=== PATIENT | male | born 1965 | race Two or more races ===

== ENCOUNTER 2024-12-09 19:13 | Emergency (ER) | payer MEDICARE, OTHER ==
[~2024-12-09] VITALS: Ht 170.2 cm; Wt 82.0 kg
[2024-12-09 19:45] LABS: Hematocrit 27.1 % (41.0-53.0); Hemoglobin 9.1 g/dL (13.5-17.5); Mean Corpuscular Hemoglobin 32.8 pg (28.0-32.0); Mean Corpuscular Volume 97.2 fL (80.0-100.0); Nucleated Red Blood Cells % 0.0 %
[2024-12-09 19:56] LABS: Chloride 103 mmol/L (98-107); Potassium 5.1 mmol/L (3.5-5.1); Sodium 139 mmol/L (136-145)
[2024-12-09 19:57] LABS: Anion Gap 18 (5-15); Calcium 9.4 mg/dL (8.7-10.4); Carbon Dioxide 18 mmol/L (20-31)
--- NOTE | 2024-12-09 19:59 | ED.PDOC ---
History of Present Illness HPI Comments 59-year-old male who is brought in by ambulance from private residence for chief complaint of shortness of breath, generalized weakness, rhinorrhea, nausea, vomiting, and dysuria. Patient endorses on being short of breath and generalized weak for several years but reports on symptoms being exacerbated, today, fall recent onset of aforementioned flu-like symptoms. Patient also complains of 10/10 abdominal pain around the surgical site, where he had a hernia repair performed, recently. He denies having any chest pain, bloody or bilious vomitus, diarrhea, constipation, fever, chills, or further associated symptoms. Significant history of ESRD, COPD, and HTN. Patient states on missing dialysis all week, today. Per EMS report, patient was found hypotensive and wheezing in all bilateral lung evans and was given breathing treatment, with improvement, EN route. Otherwise, all other vitals were noted to have been stable and within normal limits. Chief Complaint: Shortness of Breath Time Seen by MD: 19:20 Reviewed Notes: Nurses Notes, Drop Hammer Setter Up Notes, Medications, Allergies Allergies: Coded Allergies: NO KNOWN ALLERGIES (Unverified , 12/09/24) Information Source: Patient, Emergency Med Personnel Mode of Arrival: EMS Severity: Moderate Timing: Hours Duration: Since onset Prehospital treatment: 12 Lead EKG, Breathing Tx, Set Up Operator Tool Review of Systems: REVIEW OF SYSTEMS: General: No fever, no chills, or fatigue HEENT: Rhinorrhea, no sore throat, no earache, no congestion, no neck pain. Cardiac: No chest pain. No palpitations. Lungs: Shortness of breath, no cough. GI: Nausea and vomiting, abdominal pain, no diarrhea, no constipation : Dysuria, frequency, or urgency. No hematuria. Musculoskeletal: No joint pain , no joint swelling, no extremity edema. Skin: No rash, no itching. Neuro: Generalized weakness, no headache, no dizziness Vital Signs Vital Signs Date Time Temp Pulse Resp B/P (MAP) Pulse Ox O2 Delivery O2 Flow Rate FiO2 12/09/24 21:33 24 95 Nasal Cannula* 2 28 12/09/24 21:07 81 150/114 (126) 12/09/24 20:01 97.9 97.9 Physical Exam PHYSICAL EXAM: General: Awake, alert and oriented. No acute distress. Skin: Skin in warm, dry and intact. Appropriate color for ethnicity. HEENT: The head is normocephalic and atraumatic. Conjunctivae are clear without exudates or hemorrhage. Sclera is non-icteric. EOM are intact. No signs of nystagmus. Eyelids are normal in appearance without swelling or lesions. Oral mucosa is pink and moist Neck: The neck is supple with normal range of motion. No JVD. Cardiac: Heart rate and rhythm are normal. No murmurs, gallops, or rubs are auscultated. Respiratory: No signs of respiratory distress. Wheezing in bilateral lung evans. Abdominal: Abdomen is soft, non-tender without distention, guarding or rigidity. Bowel sounds are present and normoactive in all four quadrants. Extremities: Upper and lower extremities are atraumatic in appearance without deformity or edema. Neurological: The patient is awake, alert and oriented to person, place, and time with normal speech. Speech is clear. There is no facial asymmetry. Psychiatric: Appropriate mood and affect. Good judgement and insight. Past Medical History PAST MEDICAL HISTORY: COPD, ESRD, HTN Surgical History: Denies all surgeries Family History Family History: Unknown Social History Smoker: Non-Smoker Alcohol: Denies ETOH Use Drugs: Denies Drug Use Lives In: Home Was a procedure done? Was a procedure done?: No EKG EKG #1: Pulse Rate (adult): 91 [place]: Normal Cardiac Rhythm: NSR Block: None Hypertrophy: None ST: Normal Comments No STEMI EKG #2: Pulse Rate (adult): 87 [place]: Normal Cardiac Rhythm: NSR Block: None Hypertrophy: None ST: Normal Comments No STEMI Differential Dx Considerations may include: Differential diagnoses considered includebut arenot limited to acute Bronchitis, Asthma, COPD, Pneumothorax, PE, CHF, Pulmonary HTN, Anemia, CO Poisoning, Methemoglobinemia, Hyperventilation, Metabolic Acidosis, Pulmonary Edema, Pneumonia, ACS, Pericardial Tamponade, Anxiety, other X-Ray, Labs, Meds, VS Vital Signs Date Time Temp Pulse Resp B/P (MAP) Pulse Ox O2 Delivery O2 Flow Rate FiO2 12/09/24 21:33 24 95 Nasal Cannula* 2 28 12/09/24 21:07 81 24 150/114 (126) 92 12/09/24 20:55 90 185/84 12/09/24 20:43 87 26 213/122 (152) 92 12/09/24 20:38 87 12/09/24 20:28 87 12/09/24 20:24 Simple Mask* 6 50 12/09/24 20:07 24 96 Room Air* 0 21 21 12/09/24 20:01 97.9 91 18 206/115 (145) 98 97.9 12/09/24 19:59 91 12/09/24 19:13 91 Lab Test 12/09/24 21:24 12/09/24 20:38 12/09/24 19:37 Range/Units Blood Gas Specimen Type Arterial Blood Gas Sample Site Right radial Blood Gas Patient Temperature 37.0 Arterial Blood Date Drawn [id number] Arterial Blood pH 7.332 L 7.350-7.450 Arterial Blood Partial Pressure CO2 32.8 L 35.0-48.0 mmHg Arterial Blood Partial Pressure O2 70.8 L 83.0-108.0 mmHg Arterial Blood HCO3 17.0 L 21.0-28.0 mmol/L Arterial Blood Oxygen Saturation 92.3 L 94.0-98.0 % Arterial Blood Base Excess -8.0 L -2.0-3.0 mmol/L Arterial Blood Oxyhemoglobin 89.6 L 94.0-98.0 % Arterial Blood Carboxyhemoglobin 2.9 H 0.5-1.5 % Arterial Blood Methemoglobin 0.0 0.0-1.5 % Kj Test Yes Blood Gas Total Hemoglobin 9.50 L 13.5-17.5 g/dL Blood Gas Modality Room air Blood Gas Spontaneous Rate 24 FiO2 % 21.0 Troponin I High Sensitivity 29 30 </=54 ng/L White Blood Count 13.4 H 4.4-10.8 10^3/uL Red Blood Count 2.79 L 4.5-5.90 10^6/uL Hemoglobin 9.1 L 13.5-17.5 g/dL Hematocrit 27.1 L 41.0-53.0 % Mean Corpuscular Volume 97.2 80.0-100.0 fL Mean Corpuscular Hemoglobin 32.8 H 28.0-32.0 pg Mean Corpuscular Hemoglobin Concent 33.7 32.0-36.0 g/dL Red Cell Distribution Width 13.9 11.8-14.3 % Platelet Count 186 140-450 10^3/uL Mean Platelet Volume 7.9 6.9-10.8 fL Neutrophils (%) (Auto) 83.8 H 37.0-80.0 % Lymphocytes (%) (Auto) 7.9 L 10.0-50.0 % Monocytes (%) (Auto) 6.0 0.0-12.0 % Eosinophils (%) (Auto) 2.0 0.0-7.0 % Basophils (%) (Auto) 0.3 0.0-2.0 % Neutrophils # (Auto) 11.2 H 1.6-8.6 10 ^3/uL Lymphocytes # (Auto) 1.1 0.4-5.4 10 ^3/uL Monocytes # (Auto) 0.8 0-1.3 10 ^3/uL Eosinophils # (Auto) 0.3 0-0.8 10 ^3/uL Basophils # (Auto) 0 0-0.2 10 ^3/uL Nucleated Red Blood Cells 0.0 % Sodium Level 139 136-145 mmol/L Potassium Level 5.1 3.5-5.1 mmol/L Chloride Level 103 98-107 mmol/L Carbon Dioxide Level 18 L 20-31 mmol/L Anion Gap 18 H 5-15 Blood Urea Nitrogen 96 *H 9-23 mg/dL Creatinine 13.28 *H 0.700-1.30 mg/dL Glomerular Filtration Rate Calc 4 >90 mL/min BUN/Creatinine Ratio 7.2 L 10.0-20.0 Serum Glucose 104 74-106 mg/dL Calcium Level 9.4 8.7-10.4 mg/dL B-Type Natriuretic Peptide 1541.01 0-100 pg/mL Lipase 129 H 12-53 U/L Plasma/Serum Blood Alcohol 4.0 <10 mg/dL Current Medications Medications (Trade) Dose Ordered Sig/Alexei Route Start Time Stop Time Status Last Admin Albuterol (Ventolin Medneb) 2.5 mg ONCE ONCE NEB 12/09/24 19:30 12/09/24 19:31 DC 12/09/24 20:07 Ipratropium Castana (Atrovent Medneb) 0.5 mg ONCE ONCE NEB 12/09/24 19:30 12/09/24 19:31 DC 12/09/24 20:07 Methylprednisolone Sodium Succinate (Solu Medrol) 80 mg ONCE ONCE IV 12/09/24 19:30 12/09/24 19:31 DC 12/09/24 20:02 Ondansetron HCl (Zofran) 4 mg ONCE ONCE IV 12/09/24 19:30 12/09/24 19:31 DC 12/09/24 20:02 Labetalol HCl (Labetalol HCl) 20 mg ONCE ONCE IV 12/09/24 20:45 12/09/24 20:47 DC 12/09/24 20:55 Albuterol (Ventolin Medneb) 2.5 mg ONCE ONCE NEB 12/09/24 21:00 12/09/24 21:01 DC 12/09/24 21:33 [place] [address] Ph: [phone] DIAGNOSTIC IMAGING Diagnostic Imaging Report : [id number] Signed PATIENT: VIOLETA RUFFIN ACCT: [id number] UNIT: [id number] : 1965 LOC: ER ROOM / BED: / AGE / SEX: 59 / M ADM STATUS: REG ER SERVICE 26 ORDERING PHYSICIAN: JOSY BOWDEN MD PROCEDURE(s): CXR1 - CHEST XRAY 1 VIEW REASON: Shortness of breath ORDER NUMBER(s): [id number], ACCESSION NUMBER(s): [id number] CHEST RADIOGRAPH Indication: Shortness of breath Technique: Single frontal view of the chest was obtained Comparison: None FINDINGS: Lines and Tubes: None Lungs: No focal consolidation. Mild interstitial prominence Pleura: No effusion. No pneumothorax. Cardiomediastinal contours: Mild cardiomegaly mild atherosclerotic calcification and uncoiling of the aorta. Bones: No acute osseous abnormality. IMPRESSION: Mild cardiomegaly with mild pulmonary vascular congestion. ATED BY: CLAIRE REED DO DICTATED DATE/TIME: 12/09/242100 SIGNED BY: CLAIRE REED DO SIGNED DATE/TIME: 12/09/242100 CC: Time of 1ST Reevaluation: 19:50 Reevaluation 1ST: Unchanged Patient Education/Counseling: Treatment Family Education/Counseling: No Family Present SEPSIS Sepsis Screen Physician Orders Titrate Oxygen (12/09/24 19:27) Oxygen (12/09/24 ) Continous Pulse Oximetry (12/09/24 19:27) Saline Lock (12/09/24 19:27) Set Up Operator Tool (12/09/24 ) Notify Md If Abnormal Vs (12/09/24 19:27) Drug Screen (12/09/24 19:27) Urinalysis (12/09/24 19:27) Chest Xray 1 View (12/09/24 19:27) Electrocardigram (12/09/24 19:27) Troponin-I Hs (12/09/24 22:27) Electrocardigram (12/09/24 20:27) Electrocardigram (12/09/24 22:27) Covid19 Antigen Kendra (12/09/24 ) Rapid Influenza A&B (12/09/24 19:27) Abg W/ Co-Ox (12/09/24 21:23) Vital Signs Date Time Temp Pulse Resp B/P (MAP) Pulse Ox O2 Delivery O2 Flow Rate FiO2 12/09/24 21:33 24 95 Nasal Cannula* 2 28 12/09/24 21:07 81 24 150/114 (126) 92 12/09/24 20:55 90 185/84 12/09/24 20:43 87 26 213/122 (152) 92 12/09/24 20:38 87 12/09/24 20:28 87 12/09/24 20:24 Simple Mask* 6 50 12/09/24 20:07 24 96 Room Air* 0 21 21 12/09/24 20:01 97.9 91 18 206/115 (145) 98 97.9 12/09/24 19:59 91 12/09/24 19:13 91 Laboratory Tests Test 12/09/24 19:37 White Blood Count 13.4 10^3/uL (4.4-10.8) H Medications Medications Dose Ordered Sig/Alexei Route Start Time Stop Time Status Last Admin Dose Admin Albuterol 2.5 mg ONCE ONCE NEB 12/09/24 19:30 12/09/24 19:31 DC 12/09/24 20:07 Albuterol 2.5 mg ONCE ONCE NEB 12/09/24 21:00 12/09/24 21:01 DC 12/09/24 21:33 Ipratropium Castana 0.5 mg ONCE ONCE NEB 12/09/24 19:30 12/09/24 19:31 DC 12/09/24 20:07 Labetalol HCl 20 mg ONCE ONCE IV 12/09/24 20:45 12/09/24 20:47 DC 12/09/24 20:55 Methylprednisolone Sodium Succinate 80 mg ONCE ONCE IV 12/09/24 19:30 12/09/24 19:31 DC 12/09/24 20:02 Ondansetron HCl 4 mg ONCE ONCE IV 12/09/24 19:30 12/09/24 19:31 DC 12/09/24 20:02 Departure 1 Departure Time of Disposition: 22:16 Impression: Primary Impression: End stage renal failure on dialysis Additional Impressions: Hypoxia Hypertensive urgency Shortness of breath Eloped from emergency department Disposition: LEFT AWOL/ELOPED Condition: Serious Comments 59-year-old male presents to the emergency department with shortness of breath after missing 1 week of dialysis. Patient was seen and evaluated on arrival to the ED, plan of care discussed with the patient. Treatment was initiated in the emergency department however patient did not want to stay, he left the emergency department before I was able to have a discussion with him about risk of leaving without completing treatment. Extensive evaluation was performed in attempt to identify or rule out: (See differential diagnosis section) The following test were independently interpreted by me: EKG I reviewed and agreed with the following test results read by other providers: Chest x-ray I reviewed the following notes from the pt's past medical encounters: N/A Additional information was gathered from interviewing the following independent historians: EMS personnel Critical Care Note Critical Care Time?: No Stability Stability form required: No Heart Score Heart Score: Heart Score Response (Comments) Value History Moderate Suspicious 1 EKG Normal 0 Age 45-64 1 Risk Factors >3 or Hx ASHD 2 Troponin Normal limit 0 Total 4 I personally scribed for JOSY BOWDEN MD ([email or web address]) on 12/09/24 at 19:59. Electronically submitted by Obey Meza ([email or web address]). I personally scribed for JOSY BOWDEN MD ([email or web address]) on 12/09/24 at 20:38. Electronically submitted by Obey Meza ([email or web address]). I personally scribed for JOSY BOWDEN MD ([email or web address]) on 12/09/24 at 21:25. Electronically submitted by Obey Meza ([email or web address]). JOSY BOWDEN MD Dec 09, 2024 19:59
[2024-12-09 20:01] VITALS: TEMP 97.9
[2024-12-09 20:02] LABS: BUN/Creatinine Ratio 7.2 (10.0-20.0); Glucose 104 mg/dL (74-106)
[2024-12-09] MEDS: methylPREDNISolone SOD SUCC 125 MG/2 ML VL IV ONE (20:02)
[2024-12-09] MEDS: ONDANSETRON HCL 4 MG/2 ML VIAL IV ONE (20:02)
[2024-12-09 20:03] LABS: Lipase 129 U/L (12-53)
[2024-12-09] MEDS: ALBUTEROL SULF 2.5 MG/0.5ML(0.5%) NEB SOLN NEB ONE ×2 (20:07→21:33)
[2024-12-09] MEDS: IPRATROPIUM BROM 0.5 MG/2.5ML INH SOL NEB ONE (20:07)
[2024-12-09 20:13] LABS: Blood Urea Nitrogen 96 mg/dL (9-23)
[2024-12-09] MEDS: LABETALOL HCL 20 MG/4 ML VL IV ONE (20:55)
--- NOTE | 2024-12-09 21:03 | DVH ---
CHEST RADIOGRAPH Indication: Shortness of breath Technique: Single frontal view of the chest was obtained Comparison: None FINDINGS: Lines and Tubes: None Lungs: No focal consolidation. Mild interstitial prominence Pleura: No effusion. No pneumothorax. Cardiomediastinal contours: Mild cardiomegaly mild atherosclerotic calcification and uncoiling of the aorta. Bones: No acute osseous abnormality. IMPRESSION: Mild cardiomegaly with mild pulmonary vascular congestion.
[2024-12-09 21:07] VITALS: BP 150/114; PULSE 81
[2024-12-09 21:33] VITALS: RESP 24; O2SAT 95
[2024-12-09 21:33] LABS: Base Excess -8.0 mmol/L (-2.0-3.0)
--- NOTE | 2024-12-10 07:08 | ECG ---
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
--- NOTE | 2024-12-10 13:02 | ECG ---
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
== END 2024-12-09 22:02 | disposition left against medical advice (07) ==
LOC: EDBD 19:13 → ER 19:13
DX: I16.0 Hypertensive urgency (principal); N18.6 End stage renal disease; R09.02 Hypoxemia; R06.02 Shortness of breath; J44.9 Chronic obstructive pulmonary disease, unspecified; I12.0 Hypertensive chronic kidney disease with stage 5 chronic kidney disease or end stage renal disease; Z99.2 Dependence on renal dialysis; Z91.158 Patient's noncompliance with renal dialysis for other reason
CPT/HCPCS: 36415; 36600; 71045; 80048; 80320; 82805; 83690; 83880; 84484; 85025; 93005; 94640; 96374; 96375; 99285; J2405; J2919

== ENCOUNTER 2025-01-03 21:17 | Inpatient (IN) | payer MEDICARE, MEDICAID ==
[~2025-01-03] VITALS: Ht 170.2 cm; Wt 84.3 kg
--- NOTE | 2025-01-03 22:18 | ED.PDOC ---
History of Present Illness HPI Comments 59-year-old male who came to ER for syncope. Patient has history of hypertension, COPD, end-stage renal disease on dialysis every Tuesday and Tuesday. Patient admits that he is not fully compliant to his dialysis sessions. Patient was dry coughing violently yesterday and he had a syncopal attack. At home earlier, he was coughing profusely again, when he had 2 episodes of syncopal attacks, both of which were preceded with dry coughing. Patient denies any prior history of syncopal attacks. REVIEW OF SYSTEMS: General: No fever, no chills, or fatigue HEENT: No sore throat, no earache, no congestion, no neck pain. Cardiac: No chest pain. No palpitations. (+) syncope Lungs: No shortness of breath, (+) cough. GI: No nausea, no vomiting, no diarrhea, no constipation, no abdominal pain : No dysuria, frequency, or urgency. No hematuria. Musculoskeletal: No joint pain , no joint swelling, no extremity edema. Skin: No rash, no itching. Neuro: No headache, no dizziness, no weakness PHYSICAL EXAM: General: Awake, alert and oriented. No acute distress. Skin: Skin in warm, dry and intact. Appropriate color for ethnicity. HEENT: The head is normocephalic and atraumatic. Conjunctivae are clear without exudates or hemorrhage. Sclera is non-icteric. EOM are intact. No signs of nystagmus. Eyelids are normal in appearance without swelling or lesions. Oral mucosa is pink and moist Neck: The neck is supple with normal range of motion. No JVD. Cardiac: Heart rate and rhythm are normal. No murmurs, gallops, or rubs are auscultated. Respiratory: No signs of respiratory distress. Positive wheezes bilaterally Abdominal: Abdomen is soft, non-tender without distention, guarding or rigidity. Bowel sounds are present and normoactive in all four quadrants. Extremities: Bilateral lower extremity edema. Fistula in left upper extremity Neurological: The patient is awake, alert and oriented to person, place, and time with normal speech. Speech is clear. There is no facial asymmetry. Psychiatric: Appropriate mood and affect. Good judgement and insight. Chief Complaint: Syncope Time Seen by MD: 22:16 Reviewed Notes: Nurses Notes Allergies: Coded Allergies: NO KNOWN ALLERGIES (Unverified , 12/09/24) Information Source: Patient, Relative Mode of Arrival: Wheelchair Severity: Moderate Timing: Hours Duration: Intermittent, Minutes Past Medical History PAST MEDICAL HISTORY: COPD, ESRD, HTN Surgical History: Denies all surgeries Family History Family History: Reviewed,noncontributory to illness Social History Smoker: Cigarettes Alcohol: Denies ETOH Use Drugs: Denies Drug Use Lives In: Home Was a procedure done? Was a procedure done?: No Differential Dx Considerations may include: Anemia, electrolyte imbalance, end-stage renal disease, syncope, dehydration X-Ray, Labs, Meds, VS Vital Signs Date Time Temp Pulse Resp B/P (MAP) Pulse Ox O2 Delivery O2 Flow Rate FiO2 01/03/25 23:30 20 92 Room Air* 0 21 01/03/25 21:23 98.1 89 16 156/81 96 98.1 Lab Test 01/03/25 22:10 Range/Units White Blood Count 6.5 4.4-10.8 10^3/uL Red Blood Count 2.64 L 4.5-5.90 10^6/uL Hemoglobin 9.0 L 13.5-17.5 g/dL Hematocrit 25.7 L 41.0-53.0 % Mean Corpuscular Volume 97.4 80.0-100.0 fL Mean Corpuscular Hemoglobin 34.0 H 28.0-32.0 pg Mean Corpuscular Hemoglobin Concent 34.9 32.0-36.0 g/dL Red Cell Distribution Width 14.5 H 11.8-14.3 % Platelet Count 191 140-450 10^3/uL Mean Platelet Volume 7.5 6.9-10.8 fL Neutrophils (%) (Auto) 74.5 37.0-80.0 % Lymphocytes (%) (Auto) 11.2 10.0-50.0 % Monocytes (%) (Auto) 8.2 0.0-12.0 % Eosinophils (%) (Auto) 5.0 0.0-7.0 % Basophils (%) (Auto) 1.1 0.0-2.0 % Neutrophils # (Auto) 4.8 1.6-8.6 10 ^3/uL Lymphocytes # (Auto) 0.7 0.4-5.4 10 ^3/uL Monocytes # (Auto) 0.5 0-1.3 10 ^3/uL Eosinophils # (Auto) 0.3 0-0.8 10 ^3/uL Basophils # (Auto) 0.1 0-0.2 10 ^3/uL Nucleated Red Blood Cells 0.1 % Sodium Level 140 136-145 mmol/L Potassium Level 3.6 3.5-5.1 mmol/L Chloride Level 98 98-107 mmol/L Carbon Dioxide Level 33 H 20-31 mmol/L Anion Gap 9 5-15 Blood Urea Nitrogen 27 H 9-23 mg/dL Creatinine 6.76 H 0.700-1.30 mg/dL Glomerular Filtration Rate Calc 9 >90 mL/min BUN/Creatinine Ratio 4.0 L 10.0-20.0 Serum Glucose 119 H 74-106 mg/dL Calcium Level 9.2 8.7-10.4 mg/dL Troponin I High Sensitivity 22 </=54 ng/L B-Type Natriuretic Peptide 415.57 0-100 pg/mL Current Medications Medications (Trade) Dose Ordered Sig/Alexei Route Start Time Stop Time Status Last Admin Albuterol (Ventolin Medneb) 2.5 mg ONCE ONCE NEB 01/03/25 23:15 01/03/25 23:20 DC 01/03/25 23:30 Ipratropium Drury (Atrovent Medneb) 0.5 mg ONCE ONCE NEB 01/03/25 23:15 01/03/25 23:20 DC 01/03/25 23:28 Time of 1ST Reevaluation: 22:12 Reevaluation 1ST: Unchanged Patient Education/Counseling: Need For Follow Up Family Education/Counseling: Need For Follow Up SEPSIS Sepsis Screen Date sepsis recognized/suspect: Jan 03, 2025 Time Sepsis recognized/suspect: 2126 Recent Procedure: No On Antibiotic Therapy: No Respiratory Rate >20: No Heart Rate >90: No Temp<36 C (96.8 F) or >38.3 C: No SBP <90 or MAP <65 mmHG: No New Acute Mental Status Change: No Is the patient on CPAP, BIPAP,: No Physician Orders Electrocardigram (01/03/25 22:04) Multicultural Services Librarian (01/03/25 ) Orthostatic Vital Signs (01/03/25 ) Saline Lock (01/03/25 22:04) Fall Precautions Initiated (01/03/25 22:04) Chest Xray 1 View (01/03/25 23:09) Vital Signs Date Time Temp Pulse Resp B/P (MAP) Pulse Ox O2 Delivery O2 Flow Rate FiO2 01/03/25 23:30 20 92 Room Air* 0 21 01/03/25 21:23 98.1 89 16 156/81 96 98.1 Laboratory Tests Test 01/03/25 22:10 White Blood Count 6.5 10^3/uL (4.4-10.8) Medications Medications Dose Ordered Sig/Alexei Route Start Time Stop Time Status Last Admin Dose Admin Albuterol 2.5 mg ONCE ONCE NEB 01/03/25 23:15 01/03/25 23:20 DC 01/03/25 23:30 Ipratropium Drury 0.5 mg ONCE ONCE NEB 01/03/25 23:15 01/03/25 23:20 DC 01/03/25 23:28 Departure 1 Departure Time of Disposition: 23:10 Impression: Primary Impression: Syncopal episodes Disposition: ADMITTED INPATIENT Condition: Stable Comments MDM: 59-year-old male presents to the emergency department with multiple syncopal episode. Initial evaluation included thorough history, physical examination and appropriate diagnostic testing. Based on the clinical presentation and diagnostic findings, the patient appears to have repeated syncope, history of COPD and end-stage renal disease on dialysis. Given the complexity of the case, patient's multiple comorbidities and cardiac risk factors and need for further management patient is being admitted to the hospitalist service for further monitoring, treatment and evaluation. Risks, benefits and alternatives of admission and proposed interventions were discussed with the patient. Patient is in agreement with the plan. Extensive evaluation was performed in attempt to identify or rule out: (See differential diagnosis section) The following tests were ordered, and results were reviewed by me and discussed with patient: (See diagnostic results section) The following test were independently interpreted by me: EKG I reviewed and agreed with the following test results read by other providers: Chest x-ray I reviewed the following notes from the pt's past medical encounters: N/A Additional information was gathered from interviewing the following independent historians: Patient's family members at bedside Discussion of management or test interpretation with external physician/other qualified health career development coordinator/teacher: N/A Addressed [An acute or chronic illness that poses a threat to life or bodily function: Syncope Decision regarding hospitalization or escalation of hospital level of care: Risk and benefits of admission for further treatment of patient's condition was considered. Due to patient's current clinical condition, high risk of decline and poor outcome if discharged and need for further inpatient management and monitoring, patient will be admitted to the hospital. Drug therapy requiring intensive monitoring for toxicity: N/A Parenteral controlled substances: N/A Decision regarding elective major surgery with identified patient or procedure risk factors: N/A Decision regarding emergency major surgery: N/A Decision not to resuscitate or to de-escalate care because of poor prognosis: N/A Diagnosis or treatment significantly limited by social determinants of health: N/A Critical Care Note Critical Care Time?: No Stability Stability form required: No Heart Score Heart Score: Heart Score Response (Comments) Value History N/A 0 EKG N/A 0 Age N/A 0 Risk Factors N/A 0 Troponin N/A 0 Total 0 I personally scribed for JOSY BOWDEN MD ([email or web address]) on 01/03/25 at 22:18. Electronically submitted by Jin Oconnor ([email or web address]). JOSY BOWDEN MD Jan 03, 2025 22:18
[2025-01-03 22:27] LABS: Hematocrit 25.7 % (41.0-53.0); Hemoglobin 9.0 g/dL (13.5-17.5); Mean Corpuscular Hemoglobin 34.0 pg (28.0-32.0); Mean Corpuscular Volume 97.4 fL (80.0-100.0); Nucleated Red Blood Cells % 0.1 %
[2025-01-03 22:33] LABS: Potassium 3.6 mmol/L (3.5-5.1); Sodium 140 mmol/L (136-145)
[2025-01-03 22:34] LABS: Anion Gap 9 (5-15)
[2025-01-03 22:35] LABS: Calcium 9.2 mg/dL (8.7-10.4)
[2025-01-03 22:40] LABS: BUN/Creatinine Ratio 4.0 (10.0-20.0)
[2025-01-03 22:43] LABS: Blood Urea Nitrogen 27 mg/dL (9-23); Carbon Dioxide 33 mmol/L (20-31); Chloride 98 mmol/L (98-107); Glucose 119 mg/dL (74-106)
[2025-01-03] MEDS: IPRATROPIUM BROM 0.5 MG/2.5ML INH SOL NEB ONE (23:28)
[2025-01-03] MEDS: ALBUTEROL SULF 2.5 MG/0.5ML(0.5%) NEB SOLN NEB ONE (23:30)
[2025-01-04] VITALS (7 sets, daily range): BP systolic 150–169; BP diastolic 81–107; PULSE 79–92; RESP 16–20; TEMP 98.1–98.4; O2SAT 92–97
--- NOTE | 2025-01-04 00:28 | DVH ---
CHEST RADIOGRAPH Indication: Cough, syncope Technique: 1 view Comparison: XY CHEST XRAY 1 VIEW on DOS: 12/09/24 FINDINGS: Lines and Tubes: None Lungs: Diffuse interstitial prominence. Mild patchy left basilar opacity. Pleura: No effusion or pneumothorax. Cardiomediastinal contours: Mild cardiomegaly. Aortic atherosclerosis. Other: No acute osseous abnormality. IMPRESSION: 1. Small focal consolidation at the left lung base may represent early or mild pneumonia. Underlying findings of heart failure.
[2025-01-04] MEDS ORDERED: NITROGLYCERIN 0.4 MG SL TAB SL PRN (03:15)
[2025-01-04] MEDS ORDERED: MORPHINE SULFATE INJ 2 MG/ml SYRG IV PRN (03:15)
[2025-01-04] MEDS ORDERED: DOCUSATE SOD 100 MG CAP PO PRN (03:15)
[2025-01-04] MEDS ORDERED: ACETAMINOPHEN 325 MG TAB PO PRN (03:15)
--- NOTE | 2025-01-04 03:15 | DVHHP2 ---
History of Present Illness Reason for Visit: Syncopal episodes History of Present Illness The patient is a 59-year-old male with past medical history of COPD, end-stage renal disease on hemodialysis , and hypertension who presented to [facility] ED for evaluation of syncopal episode.Patient admits that he is not fully compliant to his dialysis sessions, noted to be coughing profusely, had 2 episodes of syncopal attacks, both of which were preceded with dry coughing. Patient was seen and evaluated in the ED, laboratory data shows WBC 6.5, hemoglobin 9.0, hematocrit 25.7, platelets 191, sodium 140, potassium 3.6, BUN 27, creatinine 6.76, glucose 119, calcium 9.2, troponin 22, BNP 415.57, blood pressure 156/81, heart rate 89, temperature 98.1 F, O2 saturation 96% on room air. Chest x-ray revealing small focal consolidations at the left lungs base may represent Joyce mild pneumonia. Please see medication orders section in the computer. On my assessment, patient denied chest pain, no headache, no dizziness, no diaphoresis, no shortness of breaths, no nausea, no vomiting, no fever, no chills. Patient was admitted for further evaluation and medical management. Past Medical History COPD, ESRD, HTN Past Surgical History Denies all surgeries Family History Reviewed, noncontributory to the management of this case. Past Social History The patient lives at home, smokes cigarettes, denies alcohol or illicit drugs abuse. Review of Systems Constitutional: Yes: Weakness; No: Fever, Chills, Sweats, Malaise, Other Eyes: No: Pain, Vision change, Conjunctivae inflammation, Eyelid inflammation, Other, Redness ENT: No: Ear pain, Ear discharge, Nose pain, Nose discharge, Nose congestion, Mouth pain, Mouth swelling, Throat pain, Throat swelling, Other Respiratory: No: Cough, Dry, Shortness of breath, SOB with excertion, Wheezing, Hemoptysis, Pleuritic Pain, Sputum, Wheezing, Other Cardiovascular: Other (Syncope); No: Chest Pain, Palpitations, Orthopnea, Paroxysmal Noc. Dyspnea, Edema, Lt Headedness Gastrointestinal: No: Nausea, Vomiting, Abdominal Pain, Diarrhea, Constipation, Melena, Hematochezia, Other Genitourinary: No Dysuria, No Frequency, No Incontinence, No Hematuria, No R etention; Other (On hemodialysis, av fistula left upper extremity.) Musculoskeletal: No: other, neck pain, shoulder pain, arm pain, back pain, hand pain, leg pain, foot pain Skin: No: Rash, Lesions, Jaundice, Bruising, Other Neurological: No: Weakness, Numbness, Incoordination, Change in speech, Confusion, Seizures, Other Allergies: Coded Allergies: NO KNOWN ALLERGIES (Unverified , 12/09/24) Exam Vital Signs Vital Signs Date Time Temp Pulse Resp B/P (MAP) Pulse Ox O2 Delivery O2 Flow Rate FiO2 01/03/25 23:30 20 92 Room Air* 0 21 01/03/25 21:23 98.1 89 156/81 98.1 General Appearance: Alert, Oriented X3, Cooperative, No acute distress HEENT: Atraumatic, PERRLA, EOMI, Mucous membr. moist/pink Respiratory: Normal air movement Cardiovascular: Regular rate, Normal S1, Normal S2, No murmurs Abdominal: Normal bowel sounds, Soft, No tenderness, No hepatospenomegaly, No masses Extremities: No clubbing, No cyanosis, No edema, Normal pulses, No tende rness/swelling Skin: No rashes, No breakdown, No significant lesion Neuro: Normal speech, Normal tone, Sensation intact, Cranial nerves 3-12 NL, Reflexes 2+ Psych/Mental Status: Mental status NL, Mood NL Labs/Xrays Labs Test 01/03/25 22:10 Range/Units White Blood Count 6.5 4.4-10.8 10^3/uL Red Blood Count 2.64 L 4.5-5.90 10^6/uL Hemoglobin 9.0 L 13.5-17.5 g/dL Hematocrit 25.7 L 41.0-53.0 % Mean Corpuscular Volume 97.4 80.0-100.0 fL Mean Corpuscular Hemoglobin 34.0 H 28.0-32.0 pg Mean Corpuscular Hemoglobin Concent 34.9 32.0-36.0 g/dL Red Cell Distribution Width 14.5 H 11.8-14.3 % Platelet Count 191 140-450 10^3/uL Mean Platelet Volume 7.5 6.9-10.8 fL Neutrophils (%) (Auto) 74.5 37.0-80.0 % Lymphocytes (%) (Auto) 11.2 10.0-50.0 % Monocytes (%) (Auto) 8.2 0.0-12.0 % Eosinophils (%) (Auto) 5.0 0.0-7.0 % Basophils (%) (Auto) 1.1 0.0-2.0 % Neutrophils # (Auto) 4.8 1.6-8.6 10 ^3/uL Lymphocytes # (Auto) 0.7 0.4-5.4 10 ^3/uL Monocytes # (Auto) 0.5 0-1.3 10 ^3/uL Eosinophils # (Auto) 0.3 0-0.8 10 ^3/uL Basophils # (Auto) 0.1 0-0.2 10 ^3/uL Nucleated Red Blood Cells 0.1 % Sodium Level 140 136-145 mmol/L Potassium Level 3.6 3.5-5.1 mmol/L Chloride Level 98 98-107 mmol/L Carbon Dioxide Level 33 H 20-31 mmol/L Anion Gap 9 5-15 Blood Urea Nitrogen 27 H 9-23 mg/dL Creatinine 6.76 H 0.700-1.30 mg/dL Glomerular Filtration Rate Calc 9 >90 mL/min BUN/Creatinine Ratio 4.0 L 10.0-20.0 Serum Glucose 119 H 74-106 mg/dL Calcium Level 9.2 8.7-10.4 mg/dL Troponin I High Sensitivity 22 </=54 ng/L B-Type Natriuretic Peptide 415.57 0-100 pg/mL PATIENT: VIOLETA RUFFIN ACCT: [id number] UNIT: [id number] : 1965 LOC: ER ROOM / BED: / AGE / SEX: 59 / M ADM STATUS: REG ER SERVICE [id number] ORDERING PHYSICIAN: JOSY BOWDEN MD PROCEDURE(s): CXR1 - CHEST XRAY 1 VIEW REASON: Cough, syncope ORDER NUMBER(s): [id number], ACCESSION NUMBER(s): [id number] CHEST RADIOGRAPH Indication: Cough, syncope Technique: 1 view Comparison: XY CHEST XRAY 1 VIEW on DOS: 12/09/24 FINDINGS: Lines and Tubes: None Lungs: Diffuse interstitial prominence. Mild patchy left basilar opacity. Pleura: No effusion or pneumothorax. Cardiomediastinal contours: Mild cardiomegaly. Aortic atherosclerosis. Other: No acute osseous abnormality. IMPRESSION: 1. Small focal consolidation at the left lung base may represent early or mild pneumonia. Underlying findings of heart failure. SEPSIS Sepsis Screen Date sepsis recognized/suspect: Jan 03, 2025 Time Sepsis recognized/suspect: 2126 Recent Procedure: No On Antibiotic Therapy: No Respiratory Rate >20: No Heart Rate >90: No Temp<36 C (96.8 F) or >38.3 C: No SBP <90 or MAP <65 mmHG: No New Acute Mental Status Change: No Is the patient on CPAP, BIPAP,: No Physician Orders Electrocardigram (01/03/25 22:04) Fire Management Specialist (01/03/25 ) Orthostatic Vital Signs (01/03/25 ) Saline Lock (01/03/25 22:04) Fall Precautions Initiated (01/03/25 22:04) Chest Xray 1 View (01/03/25 23:09) Complete Blood Count (01/04/25 04:00) Comprehensive Metabolic Panel (01/04/25 04:00) *Dr. Alondra Monroe -Da Gemma (01/04/25 03:05) Albuterol Medneb (Ventolin Medneb) (01/04/25 03:15) Sevelamer (Renagel) (01/04/25 08:00) B-Complex W/ C & Folic Tablet (Nephro-Vi (01/04/25 10:00) Azithromycin 500mg/ 250ml (Zithromax 50 (01/04/25 10:00) Azithromycin 500mg/ 250ml (Zithromax 50 (01/04/25 03:15) Type And Screen (01/04/25 03:05) Admit (01/04/25 03:05) Allergies (01/04/25 03:05) Code Status (01/04/25 03:05) Renal Standard(2gna,3gk,Lopho) (01/04/25 Breakfast) Sodium Chloride Lock (Saline Lock Ns) (01/04/25 06:00) Oxygen Per Hour (01/04/25 03:05) Hydrocodone-Acet 5/325mg Tab (Kelly 5/32 (01/04/25 03:15) Ondansetron Hcl (Zofran) (01/04/25 03:15) Docusate Sodium Capsule (Colace Capsule) (01/04/25 03:15) Complete Blood Count (01/05/25 04:00) Comprehensive Metabolic Panel (01/05/25 04:00) Condition: Serious (01/04/25 03:05) Acetaminophen Tablet (Tylenol Tablet) (01/04/25 03:15) Bedrest With Bathroom Privileg (01/04/25 03:05) Sequential Compression Device (01/04/25 ) Nitroglycerin Sublingual (Ntrostat Subli (01/04/25 03:15) Morphine Sulfate Injection (01/04/25 03:15) Stat Ekg For Chest Pain (01/04/25 03:05) Notify Of Changes From Base (01/04/25 03:05) Pile Driving Technician For 24 Hours (01/04/25 03:05) Emergency Dysrhythmia Protocol (01/04/25 03:05) Rhythm Strips Once Every Shift (01/04/25 03:05) Oxygen By Nasal Cannula (01/04/25 03:05) Vital Signs Date Time Temp Pulse Resp B/P (MAP) Pulse Ox O2 Delivery O2 Flow Rate FiO2 01/03/25 23:30 20 92 Room Air* 0 21 01/03/25 21:23 98.1 89 16 156/81 96 98.1 Laboratory Tests Test 01/03/25 22:10 White Blood Count 6.5 10^3/uL (4.4-10.8) Medications Medications Dose Ordered Sig/Alexei Route Start Time Stop Time Status Last Admin Dose Admin Albuterol 2.5 mg ONCE ONCE NEB 01/03/25 23:15 01/03/25 23:20 DC 01/03/25 23:30 2.5 MG Ipratropium [place] 0.5 mg ONCE ONCE NEB 01/03/25 23:15 01/03/25 23:20 DC 01/03/25 23:28 0.5 MG Assessment/Plan Assessment/Plan Syncopal episodes Pneumonia, unspecified organism End-stage renal disease on hemodialysis Plan 1. Admit to telemetry unit 2. Breathing treatment 3. Pain control management 4. IV antibiotic management 5. Management of fluids and electrolytes 6. Consultation for wound care etc 7. Diagnostic test chest x-ray 8. DVT prophylaxis on aspirin 9. Repeat labs CBC, CMP in a.m. 10. Home medication reviewed and reconciled 11. Continue with current medical management 12. Treatment plan discussed with patient and RN. Patient verbalized understanding. Plan discussed with: Patient, Other (RN) My Orders Orders - TRISH CONTI DNP Procedure Category Date Status Time Complete Blood Count LAB 01/04/25 Transmitted 04:00 Comprehensive LAB 01/04/25 Transmitted Metabolic Panel 04:00 *Dr. Alondra Monroe -Da CONS 01/04/25 Transmitted Gemma 03:05 Albuterol Medneb PHA 01/04/25 Transmitted (Ventolin Medneb) 03:15 Sevelamer (Renagel) PHA 01/04/25 Transmitted 08:00 B-Complex W/ C & PHA 01/04/25 Transmitted Folic Tablet 10:00 Azithromycin 500mg/ PHA 01/04/25 Transmitted 250ml (Zithromax 50 10:00 Azithromycin 500mg/ PHA 01/04/25 Transmitted 250ml (Zithromax 50 03:15 Type And Screen BBK 01/04/25 Transmitted 03:05 Admit ADMIT 01/04/25 Transmitted 03:05 Allergies HELENA 01/04/25 Transmitted 03:05 Code Status CODE 01/04/25 Transmitted 03:05 Renal DIET 01/04/25 Transmitted Standard(2gna,3gk,Lopho) Breakfast Sodium Chloride Lock PHA 01/04/25 Transmitted (Saline Lock Ns) 06:00 Oxygen Per Hour RT 01/04/25 Transmitted 03:05 Hydrocodone-Acet PHA 01/04/25 Transmitted 5/325mg Tab (Kelly 03:15 Ondansetron Hcl PHA 01/04/25 Transmitted (Zofran) 03:15 Docusate Sodium PHA 01/04/25 Transmitted Capsule (Colace 03:15 Complete Blood Count LAB 01/05/25 Verified 04:00 Comprehensive LAB 01/05/25 Verified Metabolic Panel 04:00 Condition: Serious HELENA 01/04/25 Transmitted 03:05 Acetaminophen Tablet PHA 01/04/25 Transmitted (Tylenol Tablet) 03:15 Bedrest With Bathroom HELENA 01/04/25 Transmitted Privileg 03:05 Sequential HELENA 01/04/25 Transmitted Compression Device Nitroglycerin PHA 01/04/25 Transmitted Sublingual (Ntrostat 03:15 Morphine Sulfate PHA 01/04/25 Transmitted Injection 03:15 Stat Ekg For Chest HELENA 01/04/25 Transmitted Pain 03:05 Notify Md Of Changes [facility] 01/04/25 Transmitted From Base 03:05 Pile Driving Technician For [facility] 01/04/25 Transmitted 24 Hours 03:05 Emergency Dysrhythmia [facility] 01/04/25 Transmitted Protocol 03:05 Rhythm Strips Once [facility] 01/04/25 Transmitted Every Shift 03:05 Oxygen By Nasal 01/04/25 Transmitted Cannula 03:05 Problem List: (1) Syncopal episodes (2) Pneumonia, unspecified organism (3) End stage renal failure on dialysis Date of Service: Jan 04, 2025 Billing Provider: TRISH CONTI DNP Common Visit Codes: [id number] INP/OBS CARE (HIGH) TRISH CONTI DNP Jan 04, 2025 03:15
[2025-01-04 03:53] LABS: Hematocrit 26.3 % (41.0-53.0); Hemoglobin 9.1 g/dL (13.5-17.5); Mean Corpuscular Hemoglobin 33.7 pg (28.0-32.0); Mean Corpuscular Volume 97.2 fL (80.0-100.0); Nucleated Red Blood Cells % 0.0 %
[2025-01-04] MEDS: AZITHROMYCIN 500MG/ 250ML 250 ML IV ONE (04:09)
[2025-01-04] MEDS: SODIUM CHLOR 0.9% PF (SALINE LOCK) 10ML VIAL/SYR IV SCH (04:09)
[2025-01-04 04:16] LABS: Albumin 4.1 g/dL (3.2-4.8); Alkaline Phosphatase 75 U/L (46-116); Anion Gap 12 (5-15); BUN/Creatinine Ratio 4.1 (10.0-20.0); Calcium 9.2 mg/dL (8.7-10.4); Carbon Dioxide 30 mmol/L (20-31); Glucose 92 mg/dL (74-106); Sodium 140 mmol/L (136-145); Total Protein 6.4 g/dL (5.7-8.2)
[2025-01-04 04:17] LABS: Alanine Aminotransferase < 9 U/L (7-40); Bilirubin, Total 0.3 mg/dL (0.2-1.0); Blood Urea Nitrogen 30 mg/dL (9-23); Chloride 98 mmol/L (98-107); Potassium 3.4 mmol/L (3.5-5.1)
[2025-01-04] MEDS: SEVELAMER 800 MG TAB PO SCH (09:57)
[2025-01-04] MEDS: B-COMPLEX W/ C & FOLIC ACID(NEPHROVITE TAB) PO SCH (10:54)
[2025-01-04] MEDS: CARVEDILOL 3.125 MG TAB PO SCH (10:56)
--- NOTE | 2025-01-04 12:48 | DVHPN2 ---
Reviewed: Care Plan, H&P, Labs, Medications, Previous Orders, Radiology Changes from previous H/P or p: No Changes Eyes: No Pain, No Vision change, No Conjunctivae inflammation, No Eyelid inflammation, No Other, No Redness ENT: No Ear pain, No Ear discharge, No Nose pain, No Nose discharge, No Nose congestion, No Mouth pain, No Mouth swelling, No Throat pain, No Throat swelling, No Other Cardiovascular: No Chest Pain, No Palpitations, No Orthopnea, No Paroxysmal Noc. Dyspnea, No Edema, No Lt Headedness; Other (Syncope) Respiratory: No Cough, No Dry, No Shortness of breath, No SOB with excertion, No Wheezing, No Hemoptysis, No Pleuritic Pain, No Sputum, No Other Gastrointestinal: No Nausea, No Vomiting, No Abdominal Pain, No Diarrhea, No Constipation, No Melena, No Hematochezia, No Other Genitourinary: No Dysuria, No Frequency, No Incontinence, No Hematuria, No Retention; Other (On hemodialysis, av fistula left upper extremity.) Musculoskeletal: No other, No neck pain, No shoulder pain, No arm pain, No back pain, No hand pain, No leg pain, No foot pain Skin: No Rash, No Lesions, No Jaundice, No Bruising, No Other Objective Vitals Vital Signs Date Time Temp Pulse Resp B/P (MAP) Pulse Ox O2 Delivery O2 Flow Rate FiO2 01/04/25 10:56 80 177/104 01/04/25 10:43 98.9 18 97 98.9 01/04/25 04:32 Room Air* 0 21 Medications Current Medications Medications Dose Ordered Sig/Alexei Route Start Time Stop Time Status Last Admin Dose Admin Albuterol 2.5 mg Q4HPRN PRN NEB 01/04/25 03:15 Sevelamer HCl 800 mg TIDWM PO 01/04/25 08:00 01/04/25 10:56 800 MG Multivit/Ca Carb/ B Cmplx/FA/Prenat 1 tab DAILY PO 01/04/25 10:00 01/04/25 10:54 1 TAB Azithromycin 250 ml @ 125 mls/hr DAILY IV 01/05/25 10:00 Sodium Chloride 10 ml Q8HR IV 01/04/25 06:00 01/04/25 04:09 10 ML Acetaminophen/ Hydrocodone Bitart 1 tab Q4HP PRN PO 01/04/25 03:15 Ondansetron HCl 4 mg Q4HP PRN IV 01/04/25 03:15 Docusate Sodium 100 mg BIDPRN PRN PO 01/04/25 03:15 Acetaminophen 650 mg Q6HP PRN PO 01/04/25 03:15 Nitroglycerin 0.4 mg Q5MINP PRN SL 01/04/25 03:15 Morphine Sulfate 2 mg Q30M PRN IV 01/04/25 03:15 Carvedilol 6.25 mg Q12HR PO 01/04/25 10:00 01/04/25 10:56 6.25 MG Hydralazine HCl 10 mg Q6HP PRN IV 01/04/25 06:30 Ceftriaxone Sodium 50 ml @ 100 mls/hr DAILY@ IV 01/05/25 09:00 UNV Laboratory Results Laboratory Tests 01/04/25 03:30 Chemistry Test 01/03/25 22:10 01/04/25 03:30 Calcium Level 9.2 mg/dL (8.7-10.4) 9.2 mg/dL (8.7-10.4) Albumin 4.1 g/dL (3.2-4.8) Total Protein 6.4 g/dL (5.7-8.2) Cardiac Markers Test 01/03/25 22:10 B-Type Natriuretic Peptide 415.57 pg/mL (0-100) LFT Test 01/04/25 03:30 Alanine Aminotransferase (ALT) < 9 U/L (7-40) Alkaline Phosphatase 75 U/L (46-116) Aspartate Amino Transferase (AST) 11 U/L (13-40) L Total Bilirubin 0.3 mg/dL (0.2-1.0) Labs and/or images reviewed: Labs reviewed by me, Image(s) reviewed by me Assessment/Plan Assessment/Plan Syncope: CT head ordered Sepsis secondary to left lower lobe pneumonia Left lower lobe pneumonia: Rocephin azithromycin ESRD on hemodialysis: Consult for Dr. Cantu COPD exacerbation Hypertension Medication noncompliance Time spent 75 minutes Advanced care planning time 20 minutes Patient is full code Plan discussed with: Patient My Orders Orders - GAB WIGGINS MD Procedure Category Date Status Time Ceftriaxone 1gm/50ml PHA 01/05/25 Logged D5w (Rocephin) 09:00 Ceftriaxone 1gm/50ml PHA 01/04/25 Logged D5w (Rocephin) 12:45 Rapid Influenza A&B LAB 01/04/25 Verified 12:44 Covid19 Antigen Kendra LAB 01/04/25 Verified D-Dimer LAB 01/04/25 Verified 12:44 Date of Service: Jan 04, 2025 Billing Provider: GAB WIGGINS MD Common Visit Codes: [id number] CARE 30-74 MIN GAB WIGGINS MD Jan 04, 2025 12:48
--- NOTE | 2025-01-04 13:49 | DVH ---
EXAM: CT HEAD WITHOUT CONTRAST HISTORY: Syncope COMPARISON: For reasons unknown, CT scan of the head dated 12/15/2004 was not made available on the [employer] system for viewing. TECHNIQUE: Noncontrast axial CT images of the head were performed. Sagittal and coronal reformatted i mages were obtained. This CT exam was performed using 1 or more of the following dose reduction techn iques: Automated exposure control, adjustment of the mA and/or kv according to patient size, or the u se of iterative reconstruction techniques. Radiation Dose: CTDI volume is 57.33 mGy. Dose-length product is 1013.38 mGy*cm FINDINGS: There is moderate decreased attenuation in the periventricular and by cerebral white matter. There ar e old lacunar infarcts of the bilateral basal ganglia and left caudate head. No intracranial hemorrha ge, mass, midline shift, hydrocephalus, or evidence of acute large vessel infarct. There are atherosc lerotic calcifications of the cavernous ICAs, terminal vertebral arteries, and basilar artery. There is a mucous retention cyst in the right maxillary sinus. The bilateral mastoid air cells and middle e ar spaces are clear. No cranial fracture or scalp edema. IMPRESSION: 1. Chronic ischemic changes without evidence of acute intracranial process. 2. Right maxillary sinus disease.
[2025-01-04] MEDS: cefTRIAXone 1GM/50ML D5W 50 ML IV ONE (14:40)
[2025-01-04] MEDS: hydrALAZINE HCL 20 MG/ML VL IV PRN (14:44)
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
[2025-01-04 19:08] LABS: COVID19 ANTIGEN SOFIA FIA NEGATIVE (NEGATIVE)
[2025-01-05] VITALS (8 sets, daily range): BP systolic 151–168; BP diastolic 80–92; PULSE 80–90; RESP 18–22; TEMP 98.1–98.7; O2SAT 87–100
[2025-01-05] MEDS: ALBUTEROL SULF 2.5 MG/0.5ML(0.5%) NEB SOLN NEB PRN (01:32)
[2025-01-05] MEDS: SODIUM CHL 0.9% 1000 ML BAG XX ONE (07:00)
[2025-01-05 07:33] LABS: Hematocrit 25.0 % (41.0-53.0); Hemoglobin 8.6 g/dL (13.5-17.5); Mean Corpuscular Hemoglobin 33.8 pg (28.0-32.0); Mean Corpuscular Volume 97.8 fL (80.0-100.0); Nucleated Red Blood Cells % 0.0 %
[2025-01-05 07:57] LABS: Alkaline Phosphatase 72 U/L (46-116); Anion Gap 11 (5-15); BUN/Creatinine Ratio 4.9 (10.0-20.0); Calcium 9.2 mg/dL (8.7-10.4); Carbon Dioxide 29 mmol/L (20-31); Chloride 102 mmol/L (98-107); Glucose 94 mg/dL (74-106); Potassium 4.1 mmol/L (3.5-5.1); Sodium 142 mmol/L (136-145); Total Protein 6.1 g/dL (5.7-8.2)
[2025-01-05 07:59] LABS: Albumin 3.9 g/dL (3.2-4.8)
[2025-01-05 08:18] LABS: Alanine Aminotransferase < 9 U/L (7-40); Bilirubin, Total 0.2 mg/dL (0.2-1.0); Blood Urea Nitrogen 43 mg/dL (9-23)
[2025-01-05] MEDS: cefTRIAXone 1GM/50ML D5W 50 ML IV SCH (08:40)
--- NOTE | 2025-01-05 10:53 | DVHPN2 ---
Reviewed: Care Plan, H&P, Labs, Medications, Previous Orders, Radiology Changes from previous H/P or p: No Changes Eyes: No Pain, No Vision change, No Conjunctivae inflammation, No Eyelid inflammation, No Other, No Redness ENT: No Ear pain, No Ear discharge, No Nose pain, No Nose discharge, No Nose congestion, No Mouth pain, No Mouth swelling, No Throat pain, No Throat swelling, No Other Cardiovascular: No Chest Pain, No Palpitations, No Orthopnea, No Paroxysmal Noc. Dyspnea, No Edema, No Lt Headedness; Other (Syncope) Respiratory: No Cough, No Dry, No Shortness of breath, No SOB with excertion, No Wheezing, No Hemoptysis, No Pleuritic Pain, No Sputum, No Other Gastrointestinal: No Nausea, No Vomiting, No Abdominal Pain, No Diarrhea, No Constipation, No Melena, No Hematochezia, No Other Genitourinary: No Dysuria, No Frequency, No Incontinence, No Hematuria, No Retention; Other (On hemodialysis, av fistula left upper extremity.) Musculoskeletal: No other, No neck pain, No shoulder pain, No arm pain, No back pain, No hand pain, No leg pain, No foot pain Skin: No Rash, No Lesions, No Jaundice, No Bruising, No Other Objective Vitals Vital Signs Date Time Temp Pulse Resp B/P (MAP) Pulse Ox O2 Delivery O2 Flow Rate FiO2 01/05/25 05:21 168/80 01/05/25 05:00 98.1 90 19 87 98.1 01/05/25 01:40 Nasal Cannula* 2 28 Intake/Output Intake and Output 01/05/25 07:00 Intake Total 730 ml Output Total 600 ml Balance 130 ml Intake Oral 680 ml IV Total 50 ml Output Urine Total 600 ml Medications Current Medications Medications Dose Ordered Sig/Alexei Route Start Time Stop Time Status Last Admin Dose Admin Albuterol 2.5 mg Q4HPRN PRN NEB 01/04/25 03:15 01/05/25 01:32 2.5 MG Sevelamer HCl 800 mg TIDWM PO 01/04/25 08:00 01/05/25 08:40 800 MG Multivit/Ca Carb/ B Cmplx/FA/Prenat 1 tab DAILY PO 01/04/25 10:00 01/04/25 10:54 1 TAB Azithromycin 250 ml @ 125 mls/hr DAILY IV 01/05/25 10:00 Sodium Chloride 10 ml Q8HR IV 01/04/25 06:00 01/05/25 05:25 10 ML Acetaminophen/ Hydrocodone Bitart 1 tab Q4HP PRN PO 01/04/25 03:15 Ondansetron HCl 4 mg Q4HP PRN IV 01/04/25 03:15 Docusate Sodium 100 mg BIDPRN PRN PO 01/04/25 03:15 Acetaminophen 650 mg Q6HP PRN PO 01/04/25 03:15 Nitroglycerin 0.4 mg Q5MINP PRN SL 01/04/25 03:15 Morphine Sulfate 2 mg Q30M PRN IV 01/04/25 03:15 Carvedilol 6.25 mg Q12HR PO 01/04/25 10:00 01/04/25 21:47 6.25 MG Hydralazine HCl 10 mg Q6HP PRN IV 01/04/25 06:30 01/05/25 05:21 10 MG Ceftriaxone Sodium 50 ml @ 100 mls/hr DAILY@09 IV 01/05/25 09:00 01/05/25 08:40 100 MLS/HR Laboratory Results Laboratory Tests 01/05/25 07:04 Chemistry Test 01/05/25 07:04 Albumin 3.9 g/dL (3.2-4.8) Calcium Level 9.2 mg/dL (8.7-10.4) Total Protein 6.1 g/dL (5.7-8.2) Coagulation Test 01/04/25 13:28 D-Dimer, Quantitative 1.97 mg/L FEU (0.0-0.49) H LFT Test 01/05/25 07:04 Alanine Aminotransferase (ALT) < 9 U/L (7-40) Alkaline Phosphatase 72 U/L (46-116) Aspartate Amino Transferase (AST) 13 U/L (13-40) Total Bilirubin 0.2 mg/dL (0.2-1.0) Labs and/or images reviewed: Labs reviewed by me, Image(s) reviewed by me Assessment/Plan Assessment/Plan Syncope: CT head negative except for right maxillary sinusitis Sepsis secondary to left lower lobe pneumonia Left lower lobe pneumonia: Rocephin azithromycin ESRD on hemodialysis: Consult for Dr. Cantu COPD exacerbation Hypertension Medication noncompliance Time spent 55 minutes Advanced care planning time 20 minutes Patient is full code Plan discussed with: Patient My Orders Orders - GBA WIGGINS MD Procedure Category Date Status Time Ceftriaxone 1gm/50ml PHA 01/05/25 In Process D5w (Rocephin) 09:[address] 01/04/25 Resulted 12:45 Date of Service: Jan 05, 2025 Billing Provider: GAB WIGGINS MD Common Visit Codes: [id number] INP/OBS CARE(HIGH) GAB WIGGINS MD Jan 05, 2025 10:53
[2025-01-05] MEDS: AZITHROMYCIN 500MG/ 250ML 250 ML IV SCH (12:40)
--- NOTE | 2025-01-05 15:19 | DVHPN2 ---
Progress Note - Dictate Date Seen: Jan 05, 2025 Medical Necessity Reason Pt with a Central, PICC or Fol: Yes Subjective Denies shortness of breath,feeling weak vital signs Vital Sign Date Time Temp Pulse Resp B/P (MAP) Pulse Ox O2 Delivery O2 Flow Rate FiO2 01/05/25 13:40 86 156/92 01/05/25 10:00 93 Nasal Cannula 2.0 01/05/25 10:00 28 01/05/25 05:00 98.1 19 98.1 Total Intake and Output 01/04/25 01/04/25 01/05/25 15:00 23:00 07:00 Intake Total 50 ml 680 ml Output Total 600 ml Balance 50 ml 80 ml medications Current Medications Medications Dose Ordered Sig/Alexei Route Start Time Stop Time Status Last Admin Dose Admin Albuterol 2.5 mg Q4HPRN PRN NEB 01/04/25 03:15 01/05/25 01:32 2.5 MG Sevelamer HCl 800 mg TIDWM PO 01/04/25 08:00 01/05/25 12:39 800 MG Multivit/Ca Carb/ B Cmplx/FA/Prenat 1 tab DAILY PO 01/04/25 10:00 01/05/25 12:39 1 TAB Azithromycin 250 ml @ 125 mls/hr DAILY IV 01/05/25 10:00 01/05/25 12:40 125 MLS/HR Sodium Chloride 10 ml Q8HR IV 01/04/25 06:00 01/05/25 14:05 10 ML Acetaminophen/ Hydrocodone Bitart 1 tab Q4HP PRN PO 01/04/25 03:15 Ondansetron HCl 4 mg Q4HP PRN IV 01/04/25 03:15 Docusate Sodium 100 mg BIDPRN PRN PO 01/04/25 03:15 Acetaminophen 650 mg Q6HP PRN PO 01/04/25 03:15 Nitroglycerin 0.4 mg Q5MINP PRN SL 01/04/25 03:15 Morphine Sulfate 2 mg Q30M PRN IV 01/04/25 03:15 Carvedilol 6.25 mg Q12HR PO 01/04/25 10:00 01/05/25 12:40 6.25 MG Hydralazine HCl 10 mg Q6HP PRN IV 01/04/25 06:30 01/05/25 05:21 10 MG Ceftriaxone Sodium 50 ml @ 100 mls/hr DAILY@09 IV 01/05/25 09:00 01/05/25 08:40 100 MLS/HR objective HEENT: No evidence of JVD, no oral ulcers. Pulmonary: Lungs are clear on auscultation bilaterally Cardiovascular S1-S2, no S3 or S4 Abdomen: Bowel sounds positive, soft no rebound tenderness Skin: No rash Neurological: Alert, oriented, no focal weakness Access positive bruit and thrill in AV fistula laboratory and microbiology Laboratory Tests 01/05/25 07:04 Test 01/05/25 07:04 Range/Units Serum Glucose 94 74-106 mg/dL Assessment/Plan Assessment: 1. End-stage renal disease on hemodialysis Tuesday via left upper arm AV fistula 2. Syncope, vasovagal likely 3. Pneumonia 4. Hypertension 5. Hyperkalemia managed with dialysis Plan recommendation: Hemodialysis was completed today Continue Tuesday Cardiology consult Fluid restriction less than 1 L per day Azithromycin and Rocephin Continue antihypertensive meds monitor in telemetry Thank you. Plan discussed with: Patient KOSTA JEFFERY MD Jan 05, 2025 15:18
[2025-01-05] MEDS: EPOETIN ALFA-EPBX 10,000 UNIT/1ML VIAL SC ONE (21:47)
[2025-01-06] VITALS (11 sets, daily range): BP systolic 150–180; BP diastolic 80–107; PULSE 65–100; RESP 16–24; TEMP 96.9–98.7; O2SAT 77–97
--- NOTE | 2025-01-06 12:22 | DVHPN2 ---
Reviewed: Care Plan, H&P, Labs, Medications, Previous Orders, Radiology Changes from previous H/P or p: No Changes Eyes: No Pain, No Vision change, No Conjunctivae inflammation, No Eyelid inflammation, No Other, No Redness ENT: No Ear pain, No Ear discharge, No Nose pain, No Nose discharge, No Nose congestion, No Mouth pain, No Mouth swelling, No Throat pain, No Throat swelling, No Other Cardiovascular: No Chest Pain, No Palpitations, No Orthopnea, No Paroxysmal Noc. Dyspnea, No Edema, No Lt Headedness; Other (Syncope) Respiratory: No Cough, No Dry, No Shortness of breath, No SOB with excertion, No Wheezing, No Hemoptysis, No Pleuritic Pain, No Sputum, No Other Gastrointestinal: No Nausea, No Vomiting, No Abdominal Pain, No Diarrhea, No Constipation, No Melena, No Hematochezia, No Other Genitourinary: No Dysuria, No Frequency, No Incontinence, No Hematuria, No Retention; Other (On hemodialysis, av fistula left upper extremity.) Musculoskeletal: No other, No neck pain, No shoulder pain, No arm pain, No back pain, No hand pain, No leg pain, No foot pain Skin: No Rash, No Lesions, No Jaundice, No Bruising, No Other Objective Vitals Vital Signs Date Time Temp Pulse Resp B/P (MAP) Pulse Ox O2 Delivery O2 Flow Rate FiO2 01/06/25 10:24 88 154/91 01/06/25 09:00 97.8 16 92 97.8 01/06/25 07:50 Nasal Cannula* 3 32 Intake/Output Intake and Output 01/06/25 07:00 Intake Total 900 ml Output Total 1200 ml Balance -300 ml Intake Oral 600 ml IV Total 300 ml Output Urine Total 1200 ml Medications Current Medications Medications Dose Ordered Sig/Alexei Route Start Time Stop Time Status Last Admin Dose Admin Albuterol 2.5 mg Q4HPRN PRN NEB 01/04/25 03:15 01/05/25 01:32 2.5 MG Sevelamer HCl 800 mg TIDWM PO 01/04/25 08:00 01/06/25 10:20 800 MG Multivit/Ca Carb/ B Cmplx/FA/Prenat 1 tab DAILY PO 01/04/25 10:00 01/06/25 10:20 1 TAB Azithromycin 250 ml @ 125 mls/hr DAILY IV 01/05/25 10:00 01/06/25 10:00 125 MLS/HR Sodium Chloride 10 ml Q8HR IV 01/04/25 06:00 01/06/25 06:20 10 ML Acetaminophen/ Hydrocodone Bitart 1 tab Q4HP PRN PO 01/04/25 03:15 Ondansetron HCl 4 mg Q4HP PRN IV 01/04/25 03:15 Docusate Sodium 100 mg BIDPRN PRN PO 01/04/25 03:15 Acetaminophen 650 mg Q6HP PRN PO 01/04/25 03:15 Nitroglycerin 0.4 mg Q5MINP PRN SL 01/04/25 03:15 Morphine Sulfate 2 mg Q30M PRN IV 01/04/25 03:15 Carvedilol 6.25 mg Q12HR PO 01/04/25 10:00 01/06/25 10:24 6.25 MG Hydralazine HCl 10 mg Q6HP PRN IV 01/04/25 06:30 01/05/25 17:00 10 MG Ceftriaxone Sodium 50 ml @ 100 mls/hr DAILY@09 IV 01/05/25 09:00 01/06/25 10:20 100 MLS/HR Laboratory Results Laboratory Tests 01/05/25 07:04 Labs and/or images reviewed: Labs reviewed by me, Image(s) reviewed by me Assessment/Plan Assessment/Plan Syncope: CT head negative except for right maxillary sinusitis Sepsis secondary to left lower lobe pneumonia Left lower lobe pneumonia: Rocephin azithromycin ESRD on hemodialysis: Consult for Dr. Cantu COPD exacerbation Hypertension Medication noncompliance Time spent 58 minutes Continue current management Plan discussed with: Patient Date of Service: Jan 06, 2025 Billing Provider: GAB WIGGINS MD Common Visit Codes: [id number] INP/OBS CARE(HIGH) GAB WIGGINS MD Jan 06, 2025 12:22
[2025-01-06] MEDS: ONDANSETRON HCL 4 MG/2 ML VIAL IV PRN (12:33)
--- NOTE | 2025-01-06 15:09 | DVHPN2 ---
Progress Note - Dictate Date Seen: Jan 06, 2025 Medical Necessity Reason Pt with a Central, PICC or Fol: Yes Subjective Patient feels better, eating lunch. vital signs Vital Sign Date Time Temp Pulse Resp B/P (MAP) Pulse Ox O2 Delivery O2 Flow Rate FiO2 01/06/25 12:27 172/107 01/06/25 10:24 88 01/06/25 09:00 97.8 16 92 97.8 01/06/25 07:50 Nasal Cannula* 3 32 Total Intake and Output 01/05/25 01/05/25 01/06/25 15:00 23:00 07:00 Intake Total 300 ml 600 ml Output Total 1200 ml Balance 300 ml -600 ml medications Current Medications Medications Dose Ordered Sig/Alexei Route Start Time Stop Time Status Last Admin Dose Admin Albuterol 2.5 mg Q4HPRN PRN NEB 01/04/25 03:15 01/05/25 01:32 2.5 MG Sevelamer HCl 800 mg TIDWM PO 01/04/25 08:00 01/06/25 12:25 800 MG Multivit/Ca Carb/ B Cmplx/FA/Prenat 1 tab DAILY PO 01/04/25 10:00 01/06/25 10:20 1 TAB Azithromycin 250 ml @ 125 mls/hr DAILY IV 01/05/25 10:00 01/06/25 10:00 125 MLS/HR Sodium Chloride 10 ml Q8HR IV 01/04/25 06:00 01/06/25 14:00 10 ML Acetaminophen/ Hydrocodone Bitart 1 tab Q4HP PRN PO 01/04/25 03:15 Ondansetron HCl 4 mg Q4HP PRN IV 01/04/25 03:15 01/06/25 12:33 4 MG Docusate Sodium 100 mg BIDPRN PRN PO 01/04/25 03:15 Acetaminophen 650 mg Q6HP PRN PO 01/04/25 03:15 Nitroglycerin 0.4 mg Q5MINP PRN SL 01/04/25 03:15 Morphine Sulfate 2 mg Q30M PRN IV 01/04/25 03:15 Carvedilol 6.25 mg Q12HR PO 01/04/25 10:00 01/06/25 10:24 6.25 MG Hydralazine HCl 10 mg Q6HP PRN IV 01/04/25 06:30 01/06/25 12:27 10 MG Ceftriaxone Sodium 50 ml @ 100 mls/hr DAILY@09 IV 01/05/25 09:00 01/06/25 10:20 100 MLS/HR objective HEENT: No evidence of JVD, no oral ulcers. Pulmonary: Lungs are clear on auscultation bilaterally Cardiovascular S1-S2, no S3 or S4 Abdomen: Bowel sounds positive, soft no rebound tenderness Skin: No rash Neurological: Alert, oriented, no focal weakness Access positive bruit and thrill in AV fistula laboratory and microbiology Laboratory Tests 01/05/25 07:04 Test 01/05/25 07:04 Range/Units Serum Glucose 94 74-106 mg/dL Assessment/Plan Assessment: 1. End-stage renal disease on hemodialysis Tuesday via left upper arm AV fistula 2. Syncope, vasovagal likely 3. Pneumonia 4. Hypertension 5. Hyperkalemia managed with dialysis Plan recommendation: Hemodialysis was completed today Continue Tuesday Cardiology consult Fluid restriction less than 1 L per day Azithromycin and Rocephin Continue antihypertensive meds monitor in telemetry Thank you. Plan discussed with: Patient KOSTA JEFFERY MD Jan 06, 2025 15:09
[2025-01-06] MEDS: HYDROcodone-ACET 5/325MG TAB PO PRN (17:58)
[2025-01-07] VITALS (14 sets, daily range): BP systolic 164–180; BP diastolic 90–100; PULSE 63–95; RESP 16–24; TEMP 97.1–98.3; O2SAT 90–100
[2025-01-07] MEDS: LABETALOL HCL 20 MG/4 ML VL IV ONE (04:04)
[2025-01-07] MEDS: SODIUM CHL 0.9% 1000 ML BAG XX ONE (07:00)
--- NOTE | 2025-01-07 12:55 | DVHPN2 ---
Reviewed: Care Plan, H&P, Labs, Medications, Previous Orders, Radiology Changes from previous H/P or p: No Changes Eyes: No Pain, No Vision change, No Conjunctivae inflammation, No Eyelid inflammation, No Other, No Redness ENT: No Ear pain, No Ear discharge, No Nose pain, No Nose discharge, No Nose congestion, No Mouth pain, No Mouth swelling, No Throat pain, No Throat swelling, No Other Cardiovascular: No Chest Pain, No Palpitations, No Orthopnea, No Paroxysmal Noc. Dyspnea, No Edema, No Lt Headedness; Other (Syncope) Respiratory: No Cough, No Dry, No Shortness of breath, No SOB with excertion, No Wheezing, No Hemoptysis, No Pleuritic Pain, No Sputum, No Other Gastrointestinal: No Nausea, No Vomiting, No Abdominal Pain, No Diarrhea, No Constipation, No Melena, No Hematochezia, No Other Genitourinary: No Dysuria, No Frequency, No Incontinence, No Hematuria, No Retention; Other (On hemodialysis, av fistula left upper extremity.) Musculoskeletal: No other, No neck pain, No shoulder pain, No arm pain, No back pain, No hand pain, No leg pain, No foot pain Skin: No Rash, No Lesions, No Jaundice, No Bruising, No Other Objective Vitals Vital Signs Date Time Temp Pulse Resp B/P (MAP) Pulse Ox O2 Delivery O2 Flow Rate FiO2 01/07/25 09:11 97.1 83 20 164/90 (114) 98 97.1 01/07/25 09:04 Nasal Cannula* 2 28 Intake/Output Intake and Output 01/07/25 07:00 Intake Total 1200 ml Output Total 2280 ml Balance -1080 ml Intake Oral 1200 ml Output Urine Total 2280 ml Medications Current Medications Medications Dose Ordered Sig/Alexei Route Start Time Stop Time Status Last Admin Dose Admin Albuterol 2.5 mg Q4HPRN PRN NEB 01/04/25 03:15 01/07/25 09:04 2.5 MG Sevelamer HCl 800 mg TIDWM PO 01/04/25 08:00 01/07/25 08:22 800 MG Multivit/Ca Carb/ B Cmplx/FA/Prenat 1 tab DAILY PO 01/04/25 10:00 01/06/25 10:20 1 TAB Azithromycin 250 ml @ 125 mls/hr DAILY IV 01/05/25 10:00 01/06/25 10:00 125 MLS/HR Sodium Chloride 10 ml Q8HR IV 01/04/25 06:00 01/07/25 05:43 10 ML Acetaminophen/ Hydrocodone Bitart 1 tab Q4HP PRN PO 01/04/25 03:15 01/06/25 17:58 1 TAB Ondansetron HCl 4 mg Q4HP PRN IV 01/04/25 03:15 01/06/25 12:33 4 MG Docusate Sodium 100 mg BIDPRN PRN PO 01/04/25 03:15 Acetaminophen 650 mg Q6HP PRN PO 01/04/25 03:15 Nitroglycerin 0.4 mg Q5MINP PRN SL 01/04/25 03:15 Morphine Sulfate 2 mg Q30M PRN IV 01/04/25 03:15 Carvedilol 6.25 mg Q12HR PO 01/04/25 10:00 01/06/25 22:18 6.25 MG Hydralazine HCl 10 mg Q6HP PRN IV 01/04/25 06:30 01/07/25 08:47 10 MG Ceftriaxone Sodium 50 ml @ 100 mls/hr DAILY@09 IV 01/05/25 09:00 01/06/25 10:20 100 MLS/HR Laboratory Results Laboratory Tests 01/05/25 07:04 Labs and/or images reviewed: Labs reviewed by me, Image(s) reviewed by me Assessment/Plan Assessment/Plan Syncope: CT head negative except for right maxillary sinusitis Sepsis secondary to left lower lobe pneumonia Acute Metabolic encephalopathy Left lower lobe pneumonia: Rocephin azithromycin ESRD on hemodialysis: Consult for Dr. Cantu COPD exacerbation Hypertension Medication noncompliance Time spent 58 minutes Continue current management CRYSTAL Morrow at bedside Plan discussed with: Patient Date of Service: Jan 07, 2025 Billing Provider: GAB WIGGINS MD Common Visit Codes: [id number] INP/OBS CARE(HIGH) GAB WIGGINS MD Jan 07, 2025 12:55
--- NOTE | 2025-01-07 16:48 | DVHPN2 ---
Progress Note - Dictate Date Seen: Jan 07, 2025 Has the PT tested + for MRSA If YES, has PT been informed?: No Medical Necessity Reason Pt with a Central, PICC or Fol: No Subjective No new complaints vital signs Vital Sign Date Time Temp Pulse Resp B/P (MAP) Pulse Ox O2 Delivery O2 Flow Rate FiO2 01/07/25 11:24 80 210/109 01/07/25 09:11 97.1 20 98 97.1 01/07/25 09:04 Nasal Cannula* 2 28 Total Intake and Output 01/06/25 01/06/25 01/07/25 15:00 23:00 07:00 Intake Total 400 ml 800 ml Output Total 1200 ml 1080 ml Balance -800 ml -280 ml medications Current Medications Medications Dose Ordered Sig/Alexei Route Start Time Stop Time Status Last Admin Dose Admin Albuterol 2.5 mg Q4HPRN PRN NEB 01/04/25 03:15 01/07/25 09:04 2.5 MG Sevelamer HCl 800 mg TIDWM PO 01/04/25 08:00 01/07/25 12:00 800 MG Multivit/Ca Carb/ B Cmplx/FA/Prenat 1 tab DAILY PO 01/04/25 10:00 01/07/25 11:00 1 TAB Azithromycin 250 ml @ 125 mls/hr DAILY IV 01/05/25 10:00 01/07/25 11:00 125 MLS/HR Sodium Chloride 10 ml Q8HR IV 01/04/25 06:00 01/07/25 14:10 10 ML Acetaminophen/ Hydrocodone Bitart 1 tab Q4HP PRN PO 01/04/25 03:15 01/06/25 17:58 1 TAB Ondansetron HCl 4 mg Q4HP PRN IV 01/04/25 03:15 01/06/25 12:33 4 MG Docusate Sodium 100 mg BIDPRN PRN PO 01/04/25 03:15 Acetaminophen 650 mg Q6HP PRN PO 01/04/25 03:15 Nitroglycerin 0.4 mg Q5MINP PRN SL 01/04/25 03:15 Morphine Sulfate 2 mg Q30M PRN IV 01/04/25 03:15 Carvedilol 6.25 mg Q12HR PO 01/04/25 10:00 01/07/25 11:00 6.25 MG Hydralazine HCl 10 mg Q6HP PRN IV 01/04/25 06:30 01/07/25 08:47 10 MG Ceftriaxone Sodium 50 ml @ 100 mls/hr DAILY@09 IV 01/05/25 09:00 01/07/25 09:00 100 MLS/HR objective HEENT: No evidence of JVD, no oral ulcers. Pulmonary: Lungs are clear on auscultation bilaterally Cardiovascular S1-S2, no S3 or S4 Abdomen: Bowel sounds positive, soft no rebound tenderness Skin: No rash Neurological: Alert, oriented, no focal weakness Access positive bruit and thrill in AV fistula laboratory and microbiology Laboratory Tests 01/05/25 07:04 Test 01/05/25 07:04 Range/Units Serum Glucose 94 74-106 mg/dL Problem List Assessment: 1. End-stage renal disease on hemodialysis Tuesday via left upper arm AV fistula 2. Syncope, vasovagal likely 3. Pneumonia 4. Hypertension 5. Hyperkalemia managed with dialysis Plan recommendation: Hemodialysis was completed today Continue Tuesday Cardiology consult Fluid restriction less than 1 L per day Azithromycin and Rocephin Continue antihypertensive meds monitor in telemetry Plan discussed with: Patient YFN CARBAJAL MD Jan 07, 2025 16:48
[2025-01-07] MEDS: EPOETIN ALFA-EPBX 10,000 UNIT/1ML VIAL SC ONE (21:58)
[2025-01-08] VITALS (14 sets, daily range): BP systolic 154–189; BP diastolic 83–107; PULSE 77–91; RESP 17–22; TEMP 97.8–98.7; O2SAT 96–99
--- NOTE | 2025-01-08 12:24 | DVHPN2 ---
Reviewed: Care Plan, H&P, Labs, Medications, Previous Orders, Radiology Changes from previous H/P or p: No Changes Eyes: No Pain, No Vision change, No Conjunctivae inflammation, No Eyelid inflammation, No Other, No Redness ENT: No Ear pain, No Ear discharge, No Nose pain, No Nose discharge, No Nose congestion, No Mouth pain, No Mouth swelling, No Throat pain, No Throat swelling, No Other Cardiovascular: No Chest Pain, No Palpitations, No Orthopnea, No Paroxysmal Noc. Dyspnea, No Edema, No Lt Headedness; Other (Syncope) Respiratory: No Cough, No Dry, No Shortness of breath, No SOB with excertion, No Wheezing, No Hemoptysis, No Pleuritic Pain, No Sputum, No Other Gastrointestinal: No Nausea, No Vomiting, No Abdominal Pain, No Diarrhea, No Constipation, No Melena, No Hematochezia, No Other Genitourinary: No Dysuria, No Frequency, No Incontinence, No Hematuria, No Retention; Other (On hemodialysis, av fistula left upper extremity.) Musculoskeletal: No other, No neck pain, No shoulder pain, No arm pain, No back pain, No hand pain, No leg pain, No foot pain Skin: No Rash, No Lesions, No Jaundice, No Bruising, No Other Objective Vitals Vital Signs Date Time Temp Pulse Resp B/P (MAP) Pulse Ox O2 Delivery O2 Flow Rate FiO2 01/08/25 11:25 154/96 01/08/25 10:00 69 01/08/25 09:51 96 Nasal Cannula* 3 32 01/08/25 07:55 18 01/08/25 05:00 98.7 98.7 Intake/Output Intake and Output 01/08/25 07:00 Intake Total 3200 ml Output Total 400 ml Balance 2800 ml Intake Oral 2900 ml IV Total 300 ml Output Urine Total 400 ml # Voids 8 Medications Current Medications Medications Dose Ordered Sig/Alexei Route Start Time Stop Time Status Last Admin Dose Admin Albuterol 2.5 mg Q4HPRN PRN NEB 01/04/25 03:15 01/07/25 21:39 2.5 MG Sevelamer HCl 800 mg TIDWM PO 01/04/25 08:00 01/08/25 11:23 800 MG Multivit/Ca Carb/ B Cmplx/FA/Prenat 1 tab DAILY PO 01/04/25 10:00 01/08/25 08:53 1 TAB Azithromycin 250 ml @ 125 mls/hr DAILY IV 01/05/25 10:00 01/08/25 08:53 125 MLS/HR Sodium Chloride 10 ml Q8HR IV 01/04/25 06:00 01/08/25 05:28 10 ML Acetaminophen/ Hydrocodone Bitart 1 tab Q4HP PRN PO 01/04/25 03:15 01/06/25 17:58 1 TAB Ondansetron HCl 4 mg Q4HP PRN IV 01/04/25 03:15 01/06/25 12:33 4 MG Docusate Sodium 100 mg BIDPRN PRN PO 01/04/25 03:15 Acetaminophen 650 mg Q6HP PRN PO 01/04/25 03:15 Nitroglycerin 0.4 mg Q5MINP PRN SL 01/04/25 03:15 Morphine Sulfate 2 mg Q30M PRN IV 01/04/25 03:15 Carvedilol 6.25 mg Q12HR PO 01/04/25 10:00 01/08/25 08:53 6.25 MG Hydralazine HCl 10 mg Q6HP PRN IV 01/04/25 06:30 01/08/25 11:25 10 MG Ceftriaxone Sodium 50 ml @ 100 mls/hr DAILY@09 IV 01/05/25 09:00 01/08/25 08:53 100 MLS/HR Laboratory Results Laboratory Tests 01/05/25 07:04 Labs and/or images reviewed: Labs reviewed by me, Image(s) reviewed by me Assessment/Plan Assessment/Plan Syncope: CT head negative except for right maxillary sinusitis Sepsis secondary to left lower lobe pneumonia Acute Metabolic encephalopathy Left lower lobe pneumonia: Rocephin azithromycin ESRD on hemodialysis: Consult for Dr. Cantu COPD exacerbation Hypertension Medication noncompliance Time spent 58 minutes Continue current management Patient feels better today with less shortness of breath May DC on Tuesday Plan discussed with: Patient My Orders Orders - GAB WIGGINS MD Procedure Category Date Status Time * [employer] CONS 01/07/25 Transmitted Consult Date of Service: Jan 08, 2025 Billing Provider: GAB WIGGINS MD Common Visit Codes: [id number] INP/OBS CARE(HIGH) GAB WIGGINS MD Jan 08, 2025 12:24
--- NOTE | 2025-01-08 14:07 | DVHPN2 ---
Progress Note - Dictate Date Seen: Jan 08, 2025 Has the PT tested + for MRSA If YES, has PT been informed?: No Medical Necessity Reason Pt with a Central, PICC or Fol: No Subjective No new complaints vital signs Vital Sign Date Time Temp Pulse Resp B/P (MAP) Pulse Ox O2 Delivery O2 Flow Rate FiO2 01/08/25 11:25 154/96 01/08/25 10:00 69 01/08/25 09:51 96 Nasal Cannula* 3 32 01/08/25 07:55 18 01/08/25 05:00 98.7 98.7 Total Intake and Output 01/07/25 01/07/25 01/08/25 15:00 23:00 07:00 Intake Total 300 ml 2400 ml 500 ml Output Total 400 ml Balance 300 ml 2400 ml 100 ml medications Current Medications Medications Dose Ordered Sig/Alexei Route Start Time Stop Time Status Last Admin Dose Admin Albuterol 2.5 mg Q4HPRN PRN NEB 01/04/25 03:15 01/07/25 21:39 2.5 MG Sevelamer HCl 800 mg TIDWM PO 01/04/25 08:00 01/08/25 11:23 800 MG Multivit/Ca Carb/ B Cmplx/FA/Prenat 1 tab DAILY PO 01/04/25 10:00 01/08/25 08:53 1 TAB Azithromycin 250 ml @ 125 mls/hr DAILY IV 01/05/25 10:00 01/08/25 08:53 125 MLS/HR Sodium Chloride 10 ml Q8HR IV 01/04/25 06:00 01/08/25 14:03 10 ML Acetaminophen/ Hydrocodone Bitart 1 tab Q4HP PRN PO 01/04/25 03:15 01/06/25 17:58 1 TAB Ondansetron HCl 4 mg Q4HP PRN IV 01/04/25 03:15 01/06/25 12:33 4 MG Docusate Sodium 100 mg BIDPRN PRN PO 01/04/25 03:15 Acetaminophen 650 mg Q6HP PRN PO 01/04/25 03:15 Nitroglycerin 0.4 mg Q5MINP PRN SL 01/04/25 03:15 Morphine Sulfate 2 mg Q30M PRN IV 01/04/25 03:15 Carvedilol 6.25 mg Q12HR PO 01/04/25 10:00 01/08/25 08:53 6.25 MG Hydralazine HCl 10 mg Q6HP PRN IV 01/04/25 06:30 01/08/25 11:25 10 MG Ceftriaxone Sodium 50 ml @ 100 mls/hr DAILY@09 IV 01/05/25 09:00 01/08/25 08:53 100 MLS/HR objective HEENT: No evidence of JVD, no oral ulcers. Pulmonary: Lungs are clear on auscultation bilaterally Cardiovascular S1-S2, no S3 or S4 Abdomen: Bowel sounds positive, soft no rebound tenderness Skin: No rash Neurological: Alert, oriented, no focal weakness Access positive bruit and thrill in AV fistula laboratory and microbiology Laboratory Tests 01/05/25 07:04 Test 01/05/25 07:04 Range/Units Serum Glucose 94 74-106 mg/dL Problem List Assessment: 1. End-stage renal disease on hemodialysis Tuesday via left upper arm AV fistula 2. Syncope, vasovagal likely 3. Pneumonia 4. Hypertension 5. Hyperkalemia managed with dialysis Plan recommendation: Hemodialysis was completed yesterday Continue Tuesday Fluid restriction less than 1 L per day Azithromycin and Rocephin Continue antihypertensive meds monitor in telemetry patient is stable to be discharged home today Plan discussed with: Patient YNF CARBAJAL MD Jan 08, 2025 14:07
[2025-01-09] VITALS (10 sets, daily range): BP systolic 149–175; BP diastolic 85–119; PULSE 76–84; RESP 16–20; TEMP 97.8–98.6; O2SAT 91–99
[2025-01-09 08:26] LABS: Base Excess 2.3 mmol/L (-2.0-3.0)
[2025-01-09] MEDS ORDERED: AZIT500T66 PO (11:47)
[2025-01-09] MEDS ORDERED: ALBUAER3 IN (11:47)
[2025-01-09] MEDS ORDERED: PRED20TA2 PO (11:47)
[2025-01-09] MEDS ORDERED: IPRIH INH (11:47)
--- NOTE | 2025-01-09 11:49 | DVHPN2 ---
Reviewed: Care Plan, H&P, Labs, Medications, Previous Orders, Radiology Changes from previous H/P or p: No Changes Eyes: No Pain, No Vision change, No Conjunctivae inflammation, No Eyelid inflammation, No Other, No Redness ENT: No Ear pain, No Ear discharge, No Nose pain, No Nose discharge, No Nose congestion, No Mouth pain, No Mouth swelling, No Throat pain, No Throat swelling, No Other Cardiovascular: No Chest Pain, No Palpitations, No Orthopnea, No Paroxysmal Noc. Dyspnea, No Edema, No Lt Headedness; Other (Syncope) Respiratory: No Cough, No Dry, No Shortness of breath, No SOB with excertion, No Wheezing, No Hemoptysis, No Pleuritic Pain, No Sputum, No Other Gastrointestinal: No Nausea, No Vomiting, No Abdominal Pain, No Diarrhea, No Constipation, No Melena, No Hematochezia, No Other Genitourinary: No Dysuria, No Frequency, No Incontinence, No Hematuria, No Retention; Other (On hemodialysis, av fistula left upper extremity.) Musculoskeletal: No other, No neck pain, No shoulder pain, No arm pain, No back pain, No hand pain, No leg pain, No foot pain Skin: No Rash, No Lesions, No Jaundice, No Bruising, No Other Objective Vitals Vital Signs Date Time Temp Pulse Resp B/P (MAP) Pulse Ox O2 Delivery O2 Flow Rate FiO2 01/09/25 10:00 91 Nasal Cannula 3.0 01/09/25 10:00 32 01/09/25 09:00 97.8 76 16 149/85 (106) 97.8 Intake/Output Intake and Output 01/09/25 07:00 Intake Total 1600 ml Output Total 1100 ml Balance 500 ml Intake Oral 1600 ml Output Urine Total 1100 ml # Voids 8 # Bowel Movements 4 Medications Current Medications Medications Dose Ordered Sig/Alexei Route Start Time Stop Time Status Last Admin Dose Admin Albuterol 2.5 mg Q4HPRN PRN NEB 01/04/25 03:15 01/07/25 21:39 2.5 MG Sevelamer HCl 800 mg TIDWM PO 01/04/25 08:00 01/09/25 11:19 800 MG Multivit/Ca Carb/ B Cmplx/FA/Prenat 1 tab DAILY PO 01/04/25 10:00 01/08/25 08:53 1 TAB Azithromycin 250 ml @ 125 mls/hr DAILY IV 01/05/25 10:00 01/08/25 08:53 125 MLS/HR Sodium Chloride 10 ml Q8HR IV 01/04/25 06:00 01/09/25 06:18 10 ML Acetaminophen/ Hydrocodone Bitart 1 tab Q4HP PRN PO 01/04/25 03:15 01/06/25 17:58 1 TAB Ondansetron HCl 4 mg Q4HP PRN IV 01/04/25 03:15 01/06/25 12:33 4 MG Docusate Sodium 100 mg BIDPRN PRN PO 01/04/25 03:15 Acetaminophen 650 mg Q6HP PRN PO 01/04/25 03:15 Nitroglycerin 0.4 mg Q5MINP PRN SL 01/04/25 03:15 Morphine Sulfate 2 mg Q30M PRN IV 01/04/25 03:15 Carvedilol 6.25 mg Q12HR PO 01/04/25 10:00 01/08/25 21:55 6.25 MG Hydralazine HCl 10 mg Q6HP PRN IV 01/04/25 06:30 01/08/25 21:57 10 MG Ceftriaxone Sodium 50 ml @ 100 mls/hr DAILY@09 IV 01/05/25 09:00 01/08/25 08:53 100 MLS/HR Clonidine HCl 0.2 mg Q6HP PRN PO 01/08/25 16:15 01/09/25 06:23 0.2 MG Laboratory Results Laboratory Tests 01/05/25 07:04 Blood Gas Results Test 01/09/25 08:20 Arterial Blood pH 7.430 (7.350-7.450) FiO2 % 21.0 Labs and/or images reviewed: Labs reviewed by me, Image(s) reviewed by me Assessment/Plan Assessment/Plan Syncope: CT head negative except for right maxillary sinusitis Acute on chronic respiratory failure: Oxygen by nasal canula Sepsis secondary to left lower lobe pneumonia Acute Metabolic encephalopathy Left lower lobe pneumonia: Rocephin azithromycin ESRD on hemodialysis: Consult for Dr. Cantu COPD exacerbation Hypertension Medication noncompliance Time spent 58 minutes Continue current management Patient feels better today with less shortness of breath Patient qualified for home oxygen DC back home on home health Plan discussed with: Patient My Orders Orders - GAB WIGGINS MD Procedure Category Date Status Time Clonidine Hcl Tablet PHA 01/08/25 In Process (Catapres Tablet) 16:15 Abg W/ Co-Ox RT 01/09/25 Logged 08:07 Date of Service: Jan 09, 2025 Billing Provider: GAB WIGGINS MD Common Visit Codes: [id number] INP/OBS CARE(HIGH) GAB WIGGINS MD Jan 09, 2025 11:49
--- NOTE | 2025-01-09 11:53 | DVHPN2 ---
Reviewed: Care Plan, H&P, Labs, Medications, Previous Orders, Radiology Changes from previous H/P or p: No Changes Eyes: No Pain, No Vision change, No Conjunctivae inflammation, No Eyelid inflammation, No Other, No Redness ENT: No Ear pain, No Ear discharge, No Nose pain, No Nose discharge, No Nose congestion, No Mouth pain, No Mouth swelling, No Throat pain, No Throat swelling, No Other Cardiovascular: No Chest Pain, No Palpitations, No Orthopnea, No Paroxysmal Noc. Dyspnea, No Edema, No Lt Headedness; Other (Syncope) Respiratory: No Cough, No Dry, No Shortness of breath, No SOB with excertion, No Wheezing, No Hemoptysis, No Pleuritic Pain, No Sputum, No Other Gastrointestinal: No Nausea, No Vomiting, No Abdominal Pain, No Diarrhea, No Constipation, No Melena, No Hematochezia, No Other Genitourinary: No Dysuria, No Frequency, No Incontinence, No Hematuria, No Retention; Other (On hemodialysis, av fistula left upper extremity.) Musculoskeletal: No other, No neck pain, No shoulder pain, No arm pain, No back pain, No hand pain, No leg pain, No foot pain Skin: No Rash, No Lesions, No Jaundice, No Bruising, No Other Objective Vitals Vital Signs Date Time Temp Pulse Resp B/P (MAP) Pulse Ox O2 Delivery O2 Flow Rate FiO2 01/09/25 10:00 91 Nasal Cannula 3.0 01/09/25 10:00 32 01/09/25 09:00 97.8 76 16 149/85 (106) 97.8 Intake/Output Intake and Output 01/09/25 07:00 Intake Total 1600 ml Output Total 1100 ml Balance 500 ml Intake Oral 1600 ml Output Urine Total 1100 ml # Voids 8 # Bowel Movements 4 Medications Current Medications Medications Dose Ordered Sig/Alexei Route Start Time Stop Time Status Last Admin Dose Admin Albuterol 2.5 mg Q4HPRN PRN NEB 01/04/25 03:15 01/07/25 21:39 2.5 MG Sevelamer HCl 800 mg TIDWM PO 01/04/25 08:00 01/09/25 11:19 800 MG Multivit/Ca Carb/ B Cmplx/FA/Prenat 1 tab DAILY PO 01/04/25 10:00 01/08/25 08:53 1 TAB Azithromycin 250 ml @ 125 mls/hr DAILY IV 01/05/25 10:00 01/08/25 08:53 125 MLS/HR Sodium Chloride 10 ml Q8HR IV 01/04/25 06:00 01/09/25 06:18 10 ML Acetaminophen/ Hydrocodone Bitart 1 tab Q4HP PRN PO 01/04/25 03:15 01/06/25 17:58 1 TAB Ondansetron HCl 4 mg Q4HP PRN IV 01/04/25 03:15 01/06/25 12:33 4 MG Docusate Sodium 100 mg BIDPRN PRN PO 01/04/25 03:15 Acetaminophen 650 mg Q6HP PRN PO 01/04/25 03:15 Nitroglycerin 0.4 mg Q5MINP PRN SL 01/04/25 03:15 Morphine Sulfate 2 mg Q30M PRN IV 01/04/25 03:15 Carvedilol 6.25 mg Q12HR PO 01/04/25 10:00 01/08/25 21:55 6.25 MG Hydralazine HCl 10 mg Q6HP PRN IV 01/04/25 06:30 01/08/25 21:57 10 MG Ceftriaxone Sodium 50 ml @ 100 mls/hr DAILY@09 IV 01/05/25 09:00 01/08/25 08:53 100 MLS/HR Clonidine HCl 0.2 mg Q6HP PRN PO 01/08/25 16:15 01/09/25 06:23 0.2 MG Laboratory Results Laboratory Tests 01/05/25 07:04 Blood Gas Results Test 01/09/25 08:20 Arterial Blood pH 7.430 (7.350-7.450) FiO2 % 21.0 Assessment/Plan Assessment/Plan Syncope: CT head negative except for right maxillary sinusitis Acute on chronic respiratory failure: Oxygen by nasal canula Sepsis secondary to left lower lobe pneumonia Acute Metabolic encephalopathy Left lower lobe pneumonia: Rocephin azithromycin ESRD on hemodialysis: Consult for Dr. Cantu COPD exacerbation Hypertension Medication noncompliance Time spent 58 minutes Continue current management Patient feels better today with less shortness of breath Patient qualified for home oxygen DC back home on home health Plan discussed with: Patient My Orders Orders - GAB WIGGINS MD Procedure Category Date Status Time Clonidine Hcl Tablet PHA 01/08/25 In Process (Catapres Tablet) 16:15 Abg W/ Co-Ox RT 01/09/25 Logged 08:07 Date of Service: Jan 09, 2025 Billing Provider: GAB WIGGINS MD Common Visit Codes: [id number] INP/OBS CARE(HIGH) GAB WIGGINS MD Jan 09, 2025 11:53
--- NOTE | 2025-01-09 11:57 | DVHDS2 ---
Discharge Summary Date of Admission Jan 04, 2025 at 03:05 Date of Discharge: Jan 09, 2025 Admitting Diagnosis Shortness of breath syncope Wounds: None Labs/Diagnostic Data: Laboratory Results Test 01/09/25 08:20 01/05/25 07:04 01/04/25 20:49 01/04/25 17:55 Blood Gas Specimen Type Arterial Blood Gas Sample Site Right radial Blood Gas Patient Temperature 37.0 Arterial Blood Date Drawn [id number] Arterial Blood pH 7.430 (7.350-7.450) Arterial Blood Partial Pressure CO2 41.3 mmHg (35.0-48.0) Arterial Blood Partial Pressure O2 41.0 mmHg (83.0-108.0) Arterial Blood HCO3 26.8 mmol/L (21.0-28.0) Arterial Blood Oxygen Saturation 79.8 % (94.0-98.0) Arterial Blood Base Excess 2.3 mmol/L (-2.0-3.0) Arterial Blood Oxyhemoglobin 78.6 % (94.0-98.0) Arterial Blood Carboxyhemoglobin 1.4 % (0.5-1.5) Arterial Blood Methemoglobin 0.1 % (0.0-1.5) Kj Test Yes Blood Gas Total Hemoglobin 9.00 g/dL (13.5-17.5) Blood Gas Modality Room air FiO2 % 21.0 Blood Gas Critical Value Read Back yes Blood Gas Notified Whom Blood Gas Notified Time [id number] Blood Gas Notified By painter [employer] car neida White Blood Count 6.9 10^3/uL (4.4-10.8) Red Blood Count 2.56 10^6/uL (4.5-5.90) Hemoglobin 8.6 g/dL (13.5-17.5) Hematocrit 25.0 % (41.0-53.0) Mean Corpuscular Volume 97.8 fL (80.0-100.0) Mean Corpuscular Hemoglobin 33.8 pg (28.0-32.0) Mean Corpuscular Hemoglobin Concent 34.5 g/dL (32.0-36.0) Red Cell Distribution Width 14.8 % (11.8-14.3) Platelet Count 190 10^3/uL (140-450) Mean Platelet Volume 7.4 fL (6.9-10.8) Neutrophils (%) (Auto) 74.2 % (37.0-80.0) Lymphocytes (%) (Auto) 9.8 % (10.0-50.0) Monocytes (%) (Auto) 9.5 % (0.0-12.0) Eosinophils (%) (Auto) 5.2 % (0.0-7.0) Basophils (%) (Auto) 1.3 % (0.0-2.0) Neutrophils # (Auto) 5.1 10 ^3/uL (1.6-8.6) Lymphocytes # (Auto) 0.7 10 ^3/uL (0.4-5.4) Monocytes # (Auto) 0.7 10 ^3/uL (0-1.3) Eosinophils # (Auto) 0.4 10 ^3/uL (0-0.8) Basophils # (Auto) 0.1 10 ^3/uL (0-0.2) Nucleated Red Blood Cells 0.0 % Sodium Level 142 mmol/L (136-145) Potassium Level 4.1 mmol/L (3.5-5.1) Chloride Level 102 mmol/L (98-107) Carbon Dioxide Level 29 mmol/L (20-31) Anion Gap 11 (5-15) Blood Urea Nitrogen 43 mg/dL (9-23) Creatinine 8.70 mg/dL (0.700-1.30) Glomerular Filtration Rate Calc 6 mL/min (>90) BUN/Creatinine Ratio 4.9 (10.0-20.0) Serum Glucose 94 mg/dL (74-106) Calcium Level 9.2 mg/dL (8.7-10.4) Total Bilirubin 0.2 mg/dL (0.2-1.0) Aspartate Amino Transferase (AST) 13 U/L (13-40) Alanine Aminotransferase (ALT) < 9 U/L (7-40) Alkaline Phosphatase 72 U/L (46-116) Total Protein 6.1 g/dL (5.7-8.2) Albumin 3.9 g/dL (3.2-4.8) Hepatitis B Surface Antigen Negative (Negative) POC Glucose 111 mg/dl (70-106) Influenza Type A Antigen Negative (Negative) Influenza Type B Antigen Negative (Negative) SARS-CoV-2 Antigen (Rapid) Negative (NEGATIVE) Test 01/04/25 13:28 01/03/25 22:10 D-Dimer, Quantitative 1.97 mg/L FEU (0.0-0.49) Troponin I High Sensitivity 22 ng/L (</=54) B-Type Natriuretic Peptide 415.57 pg/mL (0-100) Other Laboratory Tests 01/05/25 07:04 Brief Hx & Hospital Course: C 1-year-old male with a history of hypertension COPD home oxygen use burden for syncopal episode and shortness of breaths found to have sepsis secondary to left lower lobe pneumonia treated with Rocephin azithromycin Solu-Medrol albuterol Atrovent patient received hemodialysis by Dr. Cantu for his ESRD. Patient has significantly improved and on 2 L of oxygen at the time of discharge. ABG showed patient needs home oxygen which has been arranged discharged back home to resume previous home health home health. CT head negative. General condition stable but poor at the time of discharge. Consults/Reason for consult Nephrology Operations or Procedures Hemodialysis Condition at Discharge: Fair Final Diagnosis/Problems List Syncope: CT head negative except for right maxillary sinusitis Acute on chronic respiratory failure: Oxygen by nasal canula Sepsis secondary to left lower lobe pneumonia Acute Metabolic encephalopathy Left lower lobe pneumonia: Rocephin azithromycin ESRD on hemodialysis: Consult for Dr. 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 Patient was counseled about treatment plan, medications, possible side effects, patientverbalized understanding. All questions were answered to the best of my ability. This discharge took greater then 30 minutes in planning, reviewing documentation, counseling the patient, and discussing with other team members." ASSESSMENT ASSESSMENT Hospital Course Improved marginally Assessment Syncope: CT head negative except for right maxillary sinusitis Acute on chronic respiratory failure: Oxygen by nasal canula Sepsis secondary to left lower lobe pneumonia Acute Metabolic encephalopathy Left lower lobe pneumonia: Rocephin azithromycin ESRD on hemodialysis: Consult for Dr. Cantu COPD exacerbation Hypertension Medication noncompliance Time spent 58 minutes Continue current management Patient feels better today with less shortness of breath Patient qualified for home oxygen DC back home on home health Date of Service: Jan 09, 2025 Billing Provider: GAB WIGGINS MD Common Visit Codes: [id number] DISCH DAY >30min GAB WIGGINS MD Jan 09, 2025 11:57
--- NOTE | 2025-01-09 12:51 | DVHPN2 ---
Progress Note - Dictate Date Seen: Jan 09, 2025 Has the PT tested + for MRSA If YES, has PT been informed?: No Medical Necessity Reason Pt with a Central, PICC or Fol: No Subjective No new complaints vital signs Vital Sign Date Time Temp Pulse Resp B/P (MAP) Pulse Ox O2 Delivery O2 Flow Rate FiO2 01/09/25 10:00 91 Nasal Cannula 3.0 01/09/25 10:00 32 01/09/25 09:00 97.8 76 16 149/85 (106) 97.8 Total Intake and Output 01/08/25 01/08/25 01/09/25 14:59 22:59 06:59 Intake Total 1300 ml 300 ml Output Total 800 ml 300 ml Balance 500 ml 0 ml medications Current Medications Medications Dose Ordered Sig/Alexei Route Start Time Stop Time Status Last Admin Dose Admin Albuterol 2.5 mg Q4HPRN PRN NEB 01/04/25 03:15 01/07/25 21:39 2.5 MG Sevelamer HCl 800 mg TIDWM PO 01/04/25 08:00 01/09/25 11:19 800 MG Multivit/Ca Carb/ B Cmplx/FA/Prenat 1 tab DAILY PO 01/04/25 10:00 01/08/25 08:53 1 TAB Azithromycin 250 ml @ 125 mls/hr DAILY IV 01/05/25 10:00 01/08/25 08:53 125 MLS/HR Sodium Chloride 10 ml Q8HR IV 01/04/25 06:00 01/09/25 06:18 10 ML Acetaminophen/ Hydrocodone Bitart 1 tab Q4HP PRN PO 01/04/25 03:15 01/06/25 17:58 1 TAB Ondansetron HCl 4 mg Q4HP PRN IV 01/04/25 03:15 01/06/25 12:33 4 MG Docusate Sodium 100 mg BIDPRN PRN PO 01/04/25 03:15 Acetaminophen 650 mg Q6HP PRN PO 01/04/25 03:15 Nitroglycerin 0.4 mg Q5MINP PRN SL 01/04/25 03:15 Morphine Sulfate 2 mg Q30M PRN IV 01/04/25 03:15 Carvedilol 6.25 mg Q12HR PO 01/04/25 10:00 01/08/25 21:55 6.25 MG Hydralazine HCl 10 mg Q6HP PRN IV 01/04/25 06:30 01/08/25 21:57 10 MG Ceftriaxone Sodium 50 ml @ 100 mls/hr DAILY@09 IV 01/05/25 09:00 01/08/25 08:53 100 MLS/HR Clonidine HCl 0.2 mg Q6HP PRN PO 01/08/25 16:15 01/09/25 06:23 0.2 MG objective HEENT: No evidence of JVD, no oral ulcers. Pulmonary: Lungs are clear on auscultation bilaterally Cardiovascular S1-S2, no S3 or S4 Abdomen: Bowel sounds positive, soft no rebound tenderness Skin: No rash Neurological: Alert, oriented, no focal weakness Access positive bruit and thrill in AV fistula laboratory and microbiology Laboratory Tests 01/05/25 07:04 Test 01/05/25 07:04 Range/Units Serum Glucose 94 74-106 mg/dL Problem List Assessment: 1. End-stage renal disease on hemodialysis Tuesday via left upper arm AV fistula, seen during HD today 2. Syncope, vasovagal likely, resolved 3. Pneumonia 4. Hypertension is controlled 5. Hyperkalemia managed with dialysis Plan recommendation: Continue Tuesday on MWF Fluid restriction less than 1 L per day Continue antihypertensive meds monitor in telemetry patient is stable to be discharged home today Dietary Evaluation Review Comments: 1) Continue current POC Expected Outcomes/Goals: To meet >75% estimated needs Fu 3-5 days Plan discussed with: Patient YFN CARBAJAL MD Jan 09, 2025 12:50
[2025-01-10] VITALS (8 sets, daily range): BP systolic 117–169; BP diastolic 73–93; PULSE 70–82; RESP 18–20; TEMP 97.8–98.2; O2SAT 95–99
--- NOTE | 2025-01-10 12:01 | DVHPN2 ---
Reviewed: Care Plan, H&P, Labs, Medications, Previous Orders, Radiology Changes from previous H/P or p: No Changes Eyes: No Pain, No Vision change, No Conjunctivae inflammation, No Eyelid inflammation, No Other, No Redness ENT: No Ear pain, No Ear discharge, No Nose pain, No Nose discharge, No Nose congestion, No Mouth pain, No Mouth swelling, No Throat pain, No Throat swelling, No Other Cardiovascular: No Chest Pain, No Palpitations, No Orthopnea, No Paroxysmal Noc. Dyspnea, No Edema, No Lt Headedness; Other (Syncope) Respiratory: No Cough, No Dry, No Shortness of breath, No SOB with excertion, No Wheezing, No Hemoptysis, No Pleuritic Pain, No Sputum, No Other Gastrointestinal: No Nausea, No Vomiting, No Abdominal Pain, No Diarrhea, No Constipation, No Melena, No Hematochezia, No Other Genitourinary: No Dysuria, No Frequency, No Incontinence, No Hematuria, No Retention; Other (On hemodialysis, av fistula left upper extremity.) Musculoskeletal: No other, No neck pain, No shoulder pain, No arm pain, No back pain, No hand pain, No leg pain, No foot pain Skin: No Rash, No Lesions, No Jaundice, No Bruising, No Other Objective Vitals Vital Signs Date Time Temp Pulse Resp B/P (MAP) Pulse Ox O2 Delivery O2 Flow Rate FiO2 01/10/25 09:00 80 160/93 01/10/25 08:44 98.1 19 99 98.1 01/10/25 06:16 Nasal Cannula 5.0 01/10/25 06:16 40 Intake/Output Intake and Output 01/10/25 07:00 Intake Total 1150 ml Output Total 200 ml Balance 950 ml Intake Oral 1150 ml Output Urine Total 200 ml # Voids 4 # Bowel Movements 1 Medications Current Medications Medications Dose Ordered Sig/Alexei Route Start Time Stop Time Status Last Admin Dose Admin Albuterol 2.5 mg Q4HPRN PRN NEB 01/04/25 03:15 01/07/25 21:39 2.5 MG Sevelamer HCl 800 mg TIDWM PO 01/04/25 08:00 01/10/25 09:12 800 MG Multivit/Ca Carb/ B Cmplx/FA/Prenat 1 tab DAILY PO 01/04/25 10:00 01/10/25 08:59 1 TAB Azithromycin 250 ml @ 125 mls/hr DAILY IV 01/05/25 10:00 01/10/25 10:21 125 MLS/HR Sodium Chloride 10 ml Q8HR IV 01/04/25 06:00 01/10/25 07:09 10 ML Acetaminophen/ Hydrocodone Bitart 1 tab Q4HP PRN PO 01/04/25 03:15 01/06/25 17:58 1 TAB Ondansetron HCl 4 mg Q4HP PRN IV 01/04/25 03:15 01/06/25 12:33 4 MG Docusate Sodium 100 mg BIDPRN PRN PO 01/04/25 03:15 Acetaminophen 650 mg Q6HP PRN PO 01/04/25 03:15 Nitroglycerin 0.4 mg Q5MINP PRN SL 01/04/25 03:15 Morphine Sulfate 2 mg Q30M PRN IV 01/04/25 03:15 Carvedilol 6.25 mg Q12HR PO 01/04/25 10:00 01/10/25 09:00 6.25 MG Hydralazine HCl 10 mg Q6HP PRN IV 01/04/25 06:30 01/08/25 21:57 10 MG Ceftriaxone Sodium 50 ml @ 100 mls/hr DAILY@09 IV 01/05/25 09:00 01/10/25 09:00 100 MLS/HR Clonidine HCl 0.2 mg Q6HP PRN PO 01/08/25 16:15 01/10/25 08:59 0.2 MG Laboratory Results Laboratory Tests 01/05/25 07:04 Labs and/or images reviewed: Labs reviewed by me, Image(s) reviewed by me Assessment/Plan Assessment/Plan Syncope: CT head negative except for right maxillary sinusitis Acute on chronic respiratory failure: Oxygen by nasal canula Sepsis secondary to left lower lobe pneumonia Acute Metabolic encephalopathy Left lower lobe pneumonia: Rocephin azithromycin ESRD on hemodialysis: Consult for Dr. Cantu COPD exacerbation Hypertension Medication noncompliance Time spent 58 minutes Continue current management Patient feels better today with less shortness of breath Patient qualified for home oxygen Patient was discharged home on home health on 01/09/2025, awaiting delivery of oxygen to bed side. Plan discussed with: Patient Date of Service: Jan 10, 2025 Billing Provider: GAB WIGGINS MD Common Visit Codes: [id number] INP/OBS CARE(HIGH) GAB WIGGINS MD Jan 10, 2025 12:01
== END 2025-01-10 16:35 | disposition home health service (06) | DRG 871 ==
LOC: ER 21:17 → OVERFLOW 01-04 03:05 → TELE-WESTW 01-06 15:56
PROVIDERS: ADMIT Family Medicine; ATTEND Family Medicine
PROC: 5A1D70Z Performance of Urinary Filtration, Intermittent, Less than 6 Hours Per Day (ICD-10-PCS; principal; 2025-01-05)
PROC: 5A1D70Z Performance of Urinary Filtration, Intermittent, Less than 6 Hours Per Day (ICD-10-PCS; 2025-01-07)
PROC: 5A1D70Z Performance of Urinary Filtration, Intermittent, Less than 6 Hours Per Day (ICD-10-PCS; 2025-01-09)
DX: A41.50 Gram-negative sepsis, unspecified (principal); G93.41 Metabolic encephalopathy; N18.6 End stage renal disease; J96.20 Acute and chronic respiratory failure, unspecified whether with hypoxia or hypercapnia; J15.69 Pneumonia due to other Gram-negative bacteria; J15.9 Unspecified bacterial pneumonia; I12.0 Hypertensive chronic kidney disease with stage 5 chronic kidney disease or end stage renal disease; J44.1 Chronic obstructive pulmonary disease with (acute) exacerbation; J44.0 Chronic obstructive pulmonary disease with (acute) lower respiratory infection; Z20.822 Contact with and (suspected) exposure to COVID-19; E87.5 Hyperkalemia; J32.0 Chronic maxillary sinusitis; Z99.2 Dependence on renal dialysis; F17.210 Nicotine dependence, cigarettes, uncomplicated; E78.5 Hyperlipidemia, unspecified; Z91.148 Patient's other noncompliance with medication regimen for other reason
CPT/HCPCS: 36415; 36600; 70450; 71045; 80048; 80053; 82805; 82962; 83880; 84484; 85025; 85379; 86850; 86900; 86901; 87340; 87426; 87804; 90935; 94640; G0378; J2405